=== PATIENT | female | born 1935 | race Asian ===

== ENCOUNTER 2017-01-31 07:19 | Day surgery (SDC) | payer MEDICARE, OTHER ==
--- NOTE | 2017-01-25 09:09 | HISTORY AND PHYSICAL E ---
History and Physical NAME: COLETTE TOMAS : 1935 AGE: 81Y ADMITTED: 01/31/2017 ROOM: PLAN: Upper scope/colonoscope. HISTORY AND PHYSICAL: Patient is known to us. She does have a history of colon cancer resection. I saw her in 2008 and colonoscope was negative. At this time, patient is for upper scope and colonoscope. I saw her in 2014 where she did have a colon showing no evidence of recurrence, small polyp, redundant colon. At this time patient is for colonoscopy and upper endoscopy. PHYSICAL EXAMINATION: GENERAL: Pleasant, alert, oriented, in no acute distress. VITAL SIGNS: Blood pressure 120/80, pulse 80, respirations 18, temp is 98. HEENT: Normal. ABDOMEN: Soft. NEUROLOGIC: Exam negative. MEDICATIONS: She takes Nexium, hydrochlorothiazide, and nitroglycerin. ALLERGIES: She is allergic to IODINE. CONCLUSIONS: 1. Diverticulosis. 2. Colorectal polyps. PLAN: Upper scope and colonoscope for 01/31/2017. DICTATING PHYSICIAN: MANISHA VEGA M.D. [id number] PHY#: [id number] ID: [id number] JOB#: [id number] ACCT: [id number] cc: >
--- NOTE | 2017-01-25 09:10 | HISTORY AND PHYSICAL E ---
History and Physical NAME: COLETTE TOMAS : 1935 AGE: 81Y ADMITTED: 01/31/2017 ROOM: CHIEF COMPLAINT: History of polyps. HISTORY OF PRESENT ILLNESS: I did colonoscopy in 2000 where she had tiny rectal polyps, patent anastomosis, benign looking polyp in the distal terminal ileum. Biopsy came back no neoplastic. The patient did have another colonoscopy 2004 and upper endoscopy 2004 as well shows no ulcers. The patient did have gastritis, esophagitis and duodenitis. Colonoscopy 2004 shows no polyps, no malignancy. A 2006 colonoscopy shows hyperplastic polyps. Another colonoscopy and upper endoscopy done in 2013. ALLERGIES: IODINE. PHYSICAL EXAMINATION: VITAL SIGNS: Blood pressure 120/80, pulse 80, respirations 18, temperature is 98. HEAD, EYES, EARS, NOSE AND THROAT: Normal. ABDOMEN: Soft. NEUROLOGIC EXAM: Negative. CONCLUSION: 1. Reflux. 2. History of polyps. PLAN: The patient did have colonoscopy 2014 that showed small benign adenoma polyp with no evidence of malignancy. At this time patient admitted for upper scope and colon scope. MEDICATIONS: 1. Nexium. 2. Simvastatin. 3. Vitamin D. DICTATING PHYSICIAN: MANISHA VEGA M.D. [id number] PHY#: [id number] ID: [id number] JOB#: [id number] ACCT: [id number] cc:MANISHA VEGA M.D., ROBERT M.D. >
[2017-01-31] MEDS ORDERED: ONDANSETRON HCL INJ/PF 4 MG/2 ML SDV ONE (07:28)
[2017-01-31] MEDS ORDERED: GLYCOPYRROLATE INJ 0.4 MG/2 ML VIAL ONE (07:28)
[2017-01-31] MEDS ORDERED: NALOXONE HCL INJ/PF 0.4 MG/1 ML SDV ONE (07:28)
[2017-01-31] MEDS ORDERED: LIDOCAINE 2% JELLY 30 ML TUBE ONE (07:28)
[2017-01-31] MEDS ORDERED: EPINEPHRINE INJ 1 MG/10 ML DISP.SYRIN ONE (07:29)
[2017-01-31] MEDS ORDERED: GLUCAGON,HUMAN RECOMB 1 MG INJ ONE (07:29)
[2017-01-31] MEDS ORDERED: FLUMAZENIL INJ 0.5 MG/5 ML VIAL ONE (07:29)
[2017-01-31] MEDS: FENTANYL CITRATE INJ/PF 100 MCG/2 ML AMPUL ONE ×4 (08:17→09:17)
[2017-01-31] MEDS: MIDAZOLAM 2 MG/2 ML INJ ONE ×3 (09:03→09:15)
[2017-01-31 10:33] VITALS: BP 147/85
[2017-01-31 10:33] LABS: ABSOLUTE EOSINOPHILS # (AUTO) 0.2 10^3/uL (0.0-0.6); ABSOLUTE MONOCYTES (AUTO) 0.2 10^3/uL (0.1-1.4); ABSOLUTE NEUT (AUTO) 4.9 10^3/uL (1.7-8.2); BASOPHILS % (AUTO) 0.5 % (0-2); EOSINOPHILS % (AUTO) 2.7 % (0-6); HEMATOCRIT 34.5 % (36.0-47.0); HEMOGLOBIN 11.9 g/dL (12.0-15.5); HGB HCT DIFFERENCE 1.2; LYMPHOCYTES % (AUTO) 16.2 % (13-45); MEAN CORPUSCULAR HEMOGLOBIN 31.1 pg (27.0-33.4); MEAN CORPUSCULAR HGB CONC 34.5 g/dL (32.0-36.0); MEAN CORPUSCULAR VOLUME 90 fl (80-97); MONOCYTES % (AUTO) 3.9 % (3-13); RED BLOOD COUNT 3.84 10^6/uL (3.72-5.28); RED CELL DISTRIBUTION WIDTH 13.5 % (11.5-14.0); SEGMENTED NEUTROPHILS % (AUTO) 76.7 % (42-78); WHITE BLOOD COUNT 6.4 10^3/uL (4.0-10.5)
--- NOTE | 2017-01-31 14:43 | DISCHARGE SUMMARY E ---
Discharge Summary NAME: COLETTE TOMAS : 1935 AGE: 81Y ADMITTED: 01/31/2017 DISCHARGED: 01/31/2017 HOSPITAL COURSE: An 81-year-old female who presented to us with history of polyp, right colon resection, underwent colonoscopy today showing sigmoid polyp 3 mm, biopsy obtained, patent anastomosis. Upper scope shows no ulcers, mild gastritis, mild esophagitis. DISCHARGE PLAN: Hold aspirin and nonsteroidal. Continue all medication, vitamin D, Ultram, omeprazole, insulin, Januvia, gabapentin, vitamin and Coreg. Soft diet today. Awaiting biopsy results. Baseline CEA and CBC. Consider follow-up colonoscopy in 1 to 2 years. DICTATING PHYSICIAN: MANISHA VEGA M.D. [id number] [id number] PHY#: [id number] ID: [id number] JOB#: [id number] ACCT: [id number] cc:[facility] MANISHA BOLTON M.D., ROBERT M.D. >
--- NOTE | 2017-02-01 11:01 | OPERATIVE REPORT E ---
Operative Report NAME: COLETTE TOMAS : 1935 AGE: 81Y DATE OF SURGERY: 01/31/2017 ROOM: PREOPERATIVE DIAGNOSIS: History of right colon resection secondary to polyps. At this time, patient for followup colonoscopy. POSTOPERATIVE DIAGNOSIS: Patient has a small 4 mm polyp in the sigmoid colon. Biopsy obtained. PROCEDURE: Colonoscopy into the small intestine bypassing the anastomoses. SURGEON: MANISHA VEGA M.D. DESCRIPTION: Rectal exam normal. Sigmoid shows small 3 mm polyp, biopsy obtained. Descending colon normal. Transverse colon normal. Ascending colon resected. Scope advanced into terminal ileum. Normal distal ileum. Scope withdrawn back into anastomoses. Transverse colon normal. Descending colon normal. Sigmoid shows 3 mm polyp. Rectum normal. CONCLUSION: Sigmoid polyp. Right colon resection. No evidence of malignancy. PLAN: Awaiting biopsy results. Baseline CBC, CEA. Consider followup colonoscopy after 1 to 2 years. Patient did have another colonoscopy today upper scope. PREOPERATIVE DIAGNOSIS: Reflux. POSTOPERATIVE DIAGNOSES: 1. Esophagitis, mild. 2. Gastritis, mild. PROCEDURES: 1. Esophagoscopy. 2. Gastroscopy. 3. Duodenoscopy. TISSUE REMOVED OR ALTERED: None. ANESTHESIA: Versed 2, fentanyl 50. DESCRIPTION: Baby scope passed under guided vision, no difficulties. Esophagoscopy junction at 40. Mild esophagitis. Gastroscopy is mild gastritis. Duodenum normal. CONCLUSION: 1. Mild esophagitis. 2. Mild gastritis. No evidence of ulcers. Patient tolerated procedure well. DICTATING PHYSICIAN: MANISHA VEGA M.D. [id number] Y#: [id number] ID: [id number] JOB#: [id number] ACCT: [id number] cc:[facility] MANISHA BOLTON M.D., ROBERT M.D. >
== END 2017-01-31 10:50 | disposition home or self-care (01) ==
LOC: END 07:19
PROVIDERS: ATTEND Specialist
PROC: 0DBN8ZX Excision of Sigmoid Colon, Via Natural or Artificial Opening Endoscopic, Diagnostic (ICD-10-PCS; principal; 2017-01-31 09:00)
PROC: 0DJ08ZZ Inspection of Upper Intestinal Tract, Via Natural or Artificial Opening Endoscopic (ICD-10-PCS; 2017-01-31 09:00)
DX: Z12.11 Encounter for screening for malignant neoplasm of colon (principal); D12.5 Benign neoplasm of sigmoid colon; K29.70 Gastritis, unspecified, without bleeding; K20.9 Esophagitis, unspecified; K21.9 Gastro-esophageal reflux disease without esophagitis; R97.0 Elevated carcinoembryonic antigen [CEA]; Z90.49 Acquired absence of other specified parts of digestive tract; Z79.899 Other long term (current) drug therapy
CPT/HCPCS: 43235; 45380; 36415; 82962; 82378; 85025; 88305 ×2; J2250; J3010; J1610; J2405; J0171; J2310; J3490

== ENCOUNTER 2017-07-09 11:30 | Emergency (ER) | payer MEDICARE, OTHER ==
[2017-07-09 11:40] VITALS: BP 168/84
--- NOTE | 2017-07-09 11:48 | ER Document Report ---
HPI - HPI Patient complains to provider of: fell Onset: Just prior to arrival Onset/Duration: Sudden Quality of pain: Throbbing Pain Level: 4 Context: 81 yo right handed female stumbled and used arm to break the fall from the step trying to get into SUV prior to arrival. Thinks the wrist is broken, here with 2 friends. Associated Symptoms: None Exacerbated by: Movement Relieved by: Denies Similar symptoms previously: No Recently seen / treated by doctor: No - ROS ROS below otherwise negative: Yes Systems Reviewed and Negative: Yes All other systems reviewed and negative - REPRODUCTIVE Reproductive: DENIES: : Past Medical History - General Information source: Patient - Social History Smoking Status: Never Smoker Frequency of alcohol use: None Drug Abuse: None Lives with: Friend Family History: Reviewed & Not Pertinent - Past Medical History Cardiac Medical History: Reports: Hx Hypercholesterolemia, Hx Hypertension Pulmonary Medical History: Reports: Hx Pneumonia Neurological Medical History: Endocrine Medical History: Reports: Hx Diabetes Mellitus Type 2 Renal/ Medical History: Malignancy Medical History: Reports: Hx Colorectal Cancer GI Medical History: Reports: Hx Gastroesophageal Reflux Disease - 6 years- takes meds Musculoskeltal Medical History: Reports Hx Arthritis Traumatic Medical History: Denies: Hx Fractures Past Surgical History: Reports: Hx Abdominal Surgery - Partial colectomy, Hx Bowel Surgery - colon cancer/colon resection , Hx Orthopedic Surgery - Right hip replacement done 05/10/2010 - Immunizations Hx Diphtheria, Pertussis, Tetanus Vaccination: No Hx Pneumococcal Vaccination: 05/14/12 Vertical Provider Document - CONSTITUTIONAL Agree With Documented VS: Yes Exam Limitations: No Limitations General Appearance: Mild Distress - INFECTION CONTROL TRAVEL OUTSIDE OF THE [place] IN LAST 30 DAYS: No - HEENT HEENT: Normocephalic - NECK Neck: Supple - RESPIRATORY O2 Sat by Pulse Oximetry: 94 - MUSCULOSKELETAL/EXTREMETIES Musculoskeletal/Extremeties: Tender - left distal radius. n/v intact distally, 2 + radial pulse, Edema - distal left radius - NEURO Level of Consciousness: Awake, Alert Motor/Sensory: No Motor Deficit, No Sensory Deficit Course - Vital Signs Vital signs: Temp Pulse Resp BP Pulse Ox 97.7 F 57 L 19 168/84 H 94 07/09/17 11:38 07/09/17 11:38 07/09/17 11:38 07/09/17 11:38 07/09/17 11:38 Procedures - Immobilization Left Wrist Time completed: 13:10 Pre-Proc Neuro Vasc Exam: Normal Immobilizer type: Sugar tong Performed by: PCT Post-Proc Neuro Vasc Exam: Normal Alignment checked and good: Yes Discharge - Discharge Clinical Impression: comminuted distal radius fx, non displac Condition: Good Disposition: HOME, SELF-CARE Instructions: Fractured Radius ([facility]), Oral Narcotic Medication ([facility]), Sling to be Used ([facility]), Splint Pending Casting ([facility]) Additional Instructions: call for appointment with dr. dove the orthopedic doctor this week keep the splint on elevate on pillows to er any concerns Prescriptions: Oxycodone HCl/Acetaminophen [Percocet 5-325 mg Tablet] 1 tab PO ASDIR PRN #15 tablet PRN Reason: Referrals: GIO JONES MD [ACTIVE STAFF] - Follow up tomorrow (call for appointment this week)
[2017-07-09] MEDS ORDERED: OXYCODONE-ACETAMINOPHEN 5-325 MG TABLET PO ONE ×2 (11:57→12:49)
[2017-07-09] MEDS ORDERED: ONDANSETRON 4 MG TAB.RAPDIS PO ONE (11:57)
[2017-07-09] MEDS ORDERED: DIPH/PERTUSS(ACELL)/TETANUS VAC/PF 0.5 ML SYR (>=10YO) IM ONE (11:58)
--- NOTE | 2017-07-09 12:48 | RADIOLOGY REPORT (SQ) ---
EXAM DESCRIPTION: WRIST LEFT 3 VIEWS COMPLETED DATE/TIME: 07/09/2017 12:20 pm REASON FOR STUDY: fx COMPARISON: None. NUMBER OF VIEWS: Three views. TECHNIQUE: AP, lateral, and oblique radiographic images acquired of the left wrist. LIMITATIONS: None. FINDINGS: MINERALIZATION: Normal. BONES: Comminuted displaced impacted fracture involving the distal radius which involve the articular surface. Severe degenerative changes involving the 1st carpal/metacarpal joint SOFT TISSUES: No soft tissue swelling. No foreign body. OTHER: No other significant finding. IMPRESSION: Comminuted displaced impacted fracture involving the distal radius. TECHNICAL DOCUMENTATION: JOB ID: [id number] [employer]- All Rights Reserved Reading location - IP/workstation name: [email or web address]
== END 2017-07-09 13:03 | disposition home or self-care (01) ==
LOC: ER 11:30
DX: S52.592A Other fractures of lower end of left radius, initial encounter for closed fracture (principal); W10.8XXA Fall (on) (from) other stairs and steps, initial encounter; Y93.89 Activity, other specified; I10 Essential (primary) hypertension; E11.9 Type 2 diabetes mellitus without complications; Z85.048 Personal history of other malignant neoplasm of rectum, rectosigmoid junction, and anus
CPT/HCPCS: 99283; 90471; 73110; 90715; 29125; A9270 ×2; S0119

== ENCOUNTER 2017-09-14 07:32 | Day surgery (SDC) | payer MEDICARE, OTHER ==
[2017-09-14] MEDS ORDERED: DIPHENHYDRAMINE HCL 50 MG/ML VIAL ONE (07:50)
[2017-09-14] MEDS ORDERED: NALOXONE HCL INJ/PF 0.4 MG/1 ML SDV ONE (07:50)
[2017-09-14] MEDS ORDERED: ONDANSETRON HCL INJ/PF 4 MG/2 ML SDV ONE (07:50)
[2017-09-14] MEDS ORDERED: EPINEPHRINE INJ 1 MG/10 ML DISP.SYRIN ONE (07:51)
[2017-09-14] MEDS ORDERED: FLUMAZENIL INJ 0.5 MG/5 ML VIAL ONE (07:51)
[2017-09-14] MEDS ORDERED: FENTANYL CITRATE INJ/PF 100 MCG/2 ML AMPUL ONE (07:51)
[2017-09-14] MEDS ORDERED: GLUCAGON,HUMAN RECOMB 1 MG INJ ONE (07:51)
[2017-09-14] MEDS: MIDAZOLAM 2 MG/2 ML INJ ONE ×2 (08:16→08:30)
[2017-09-14 09:54] VITALS: BP 141/81
--- NOTE | 2017-09-14 12:42 | Operative Report ---
Operative Report DATE OF SURGERY: 09/14/17 Operative Report: The risks, benefits and alternatives of the procedure including risks of bleeding, perforation requiring surgery are explained to the patient in detail and informed consent is obtained. Patient was taken back to the endoscopy suite and placed in the left, lateral decubital position. Timeout was called. Conscious sedation medications are provided. A rectal examination is done which did not reveal any masses, tears or fissures. An Olympus videoscope was inserted the patient's rectum. The scope was then carefully advanced all the way to the anastomotic site. Mild inflammation and ulceration of the small intestinal site is noted. Biopsies obtained prep is good photodocumentation is obtained. The scope was then sequentially pulled back through the distal portions of the colon. Retroflexion maneuver is performed. The risks benefits and alternatives of the procedure explained to the patient in detail and informed consent is obtained.A GIF Olympus video scope was inserted into the patient's mouth and hypopharynx, the esophagus is identified intubated and insufflated ,the scope was then advanced through the esophagus stomach and duodenum, retroflexion maneuver is done, the esophagus stomach and first and second portions of the duodenum examined PREOPERATIVE DIAGNOSIS: Personal history of polyp. Dysphagia POSTOPERATIVE DIAGNOSIS: Mild inflammation at the anastomosis status post biopsy. Schatzki's ring which is broken. Hiatal hernia. Gastritis status post biopsy rule out Helicobacter pylori OPERATION: Colonoscopy with biopsy. EGD with biopsy SURGEON: BRET COLLADO ANESTHESIA: Moderate Sedation - 3 mg of Versed, 25 mcg of fentanyl. Conscious sedation monitoring time 30 minutes. 4 mg of Zofran provided. TISSUE REMOVED OR ALTERED: As noted above. COMPLICATIONS: None. ESTIMATED BLOOD LOSS: None. INTRAOPERATIVE FINDINGS: As noted above. PROCEDURE: Patient tolerated procedure well. No immediate postprocedure comp occasions are noted. Patient discharged in good condition. Discharge date 09/14/2017. Discharge diet: Regular. Discharge activity: Regular. 2-3 week follow-up to discuss findings. Patient is instructed call the office should there be any further problems or questions. We will wait on pathology.
--- NOTE | 2017-09-19 10:29 | PDOC CONSULTATION ---
Consultation Consult Date: 09/14/17 Attending physician:: BRET COLLADO Consult reason:: dysphagia. personal history of a polyp History of Present Illness Admission Date/PCP: VINCENT MALIK MD History of Present Illness: COLETTE TOMAS is a 81 year old female Patient seen in the office. She has complaints of intermittent solid food dysphagia. No associated weight loss. Some gastroesophageal reflux disease is noted. Denies any early satiety Denies any nausea vomiting and there is no melena Patient states had previous colonoscopy with personal history of polyp Denies any blood loss Denies any rectal bleeding She is due for surveillance colonoscopy Past Medical History Cardiac Medical History: Reports: Hyperlipidema, Hypertension Denies: Atrial Fibrillation, Congestive Heart Failure, Coronary Artery Disease, Myocardial Infarction, Peripheral Vascular Disease, Pulmonary Embolism , Heart Murmur Pulmonary Medical History: Reports: Pneumonia Denies: Asthma, Bronchitis, Chronic Obstructive Pulmonary Disease (COPD), Respiratory Failure, Sleep Apnea, Tuberculosis Neurological Medical History: Denies: Seizures Endocrine Medical History: Reports: Diabetes Mellitus Type 2 Denies: Hyperthyroidism, Hypothyroidism Malignancy Medical History: Reports: Colorectal Cancer Denies: Lung Cancer GI Medical History: Reports: Gastroesophageal Reflux Disease - 6 years- takes meds Denies: Crohn's Disease, Hiatal Hernia Musculoskeltal Medical History: Reports: Arthritis Denies: Fibromyalgia Hematology: Denies: Anemia Past Surgical History Past Surgical History: Reports: Orthopedic Surgery - Right hip replacement done 05/10/2010 Denies: Amputation, Appendectomy, Section, Cholecystectomy, Colostomy, Coronary Artery Bypass Graft, Gastric Bypass Surgery, Herniorrhaphy, Hysterectomy, Mastectomy, Pacemaker, Tonsillectomy, Tubal Ligation Social History Smoking Status: Never Smoker Frequency of Alcohol Use: None Hx Recreational Drug Use: No Drugs: None Hx Prescription Drug Abuse: No Family History Family History: Reviewed & Not Pertinent Parental Family History Reviewed: Yes Children Family History Reviewed: Unknown Sibling(s) Family History Reviewed.: Unknown Medication/Allergy Home Medications: Carvedilol [Coreg] 25 mg PO BID 07/10/13 Ergocalciferol (Vitamin D2) [Vitamin D2] 50,000 unit PO ASDIR 07/10/13 Multivitamin [Daily Vitamin] 1 each PO DAILY 07/15/14 Insulin Glargine,Hum.rec.anlog [Lantus Insulin 100 Unit/mL] 25 unit SUBCUT QAM 02/29/16 Omeprazole 40 mg PO QAM 02/29/16 Sitagliptin Phosphate [Januvia 50 mg Tablet] 100 mg PO QAM 02/29/16 Tramadol HCl [Ultram 50 mg Tablet] 50 mg PO TID 02/29/16 Gabapentin 300 mg PO DAILY 01/31/17 Furosemide [Lasix 40 mg Tablet] 40 mg PO ASDIR PRN 09/14/17 Losartan/Hydrochlorothiazide [Losartan-Hctz 100-25 mg Tab] 1 each PO DAILY 09/14 Allergies/Adverse Reactions: iodine [Iodine] Adverse Reaction (Intermediate, Verified 09/14/17 07:40) Rash/itching Review of Systems Constitutional: ABSENT: fever(s), headache(s), night sweats, weakness Eyes: ABSENT: visual disturbances Ears: ABSENT: hearing changes Nose, Mouth, and Throat: ABSENT: mouth pain Cardiovascular: ABSENT: edema, orthropnea, palpitations Respiratory: ABSENT: dyspnea, hemoptysis Gastrointestinal: PRESENT: dysphagia. ABSENT: hematochezia, nausea, vomiting Genitourinary: ABSENT: dysuria, hematuria Musculoskeletal: ABSENT: deformity, joint swelling Integumentary: ABSENT: lesions, pruritus Neurological: ABSENT: syncope, tingling, tremor(s), vertigo Endocrine: ABSENT: polydipsia, polyphagia, polyuria Hematologic/Lymphatic: PRESENT: easy bruising Physical Exam Vital Signs: Temp Pulse Resp BP Pulse Ox 97.9 F 68 16 141/81 H 96 09/14/17 09:05 09/14/17 09:35 09/14/17 09:35 09/14/17 09:35 09/14/17 09:35 General appearance: PRESENT: no acute distress, well-developed, well-nourished Head exam: PRESENT: atraumatic, normocephalic Eye exam: PRESENT: EOMI, PERRLA. ABSENT: scleral icterus Mouth exam: PRESENT: moist Throat exam: ABSENT: tonsillar exudate, tonsillogmegaly Neck exam: ABSENT: meningismus, tenderness, thyromegaly Respiratory exam: PRESENT: symmetrical, unlabored. ABSENT: tachypnea, wheezes Cardiovascular exam: PRESENT: RRR, +S1, +S2 GI/Abdominal exam: PRESENT: soft. ABSENT: rebound, rigid, tenderness Extremities exam: ABSENT: joint swelling Musculoskeletal exam: PRESENT: full ROM Neurological exam: PRESENT: alert, awake, oriented to time, oriented to situation, CN II-XII grossly intact Focused psych exam: ABSENT: restlessness Skin exam: PRESENT: normal color. ABSENT: mottled, pallor, urticaria, vesicles Assessment & Plan - Diagnosis (1) Personal history of colonic polyps Plan: Will need colonoscopy. If negative this should be her last colonoscopy. Risk benefits alternatives of the procedure including risks of bleeding, perforation requiring surgery are explained to the patient in detail, informed consent was obtained and further recommendations to follow. (2) Dysphagia Plan: We will need EGD as well. Can schedule at the same setting. Further recommendations to follow. - Time Time Spent: 50 to 70 Minutes
== END 2017-09-14 09:40 | disposition home or self-care (01) ==
LOC: END 07:32
PROVIDERS: ATTEND Internal Medicine Gastroenterology
DX: Z12.11 Encounter for screening for malignant neoplasm of colon (principal); K52.9 Noninfective gastroenteritis and colitis, unspecified; K22.2 Esophageal obstruction; K29.50 Unspecified chronic gastritis without bleeding; Z86.010 Personal history of colon polyps; E87.5 Hyperkalemia; I10 Essential (primary) hypertension; E11.9 Type 2 diabetes mellitus without complications; K21.9 Gastro-esophageal reflux disease without esophagitis; M19.90 Unspecified osteoarthritis, unspecified site; Z96.641 Presence of right artificial hip joint; Z79.4 Long term (current) use of insulin; Z79.899 Other long term (current) drug therapy; Z85.038 Personal history of other malignant neoplasm of large intestine
CPT/HCPCS: 43239; 45380; 82962; 88342 ×2; 88305 ×2; J2250; J3010; J2405; J0171; J1200; J1610; J2310; J3490

== ENCOUNTER → 2018-05-08 | Outpatient (CLI) | payer MEDICARE, OTHER ==
--- NOTE | 2018-05-08 11:17 | RADIOLOGY REPORT (SQ) ---
EXAM DESCRIPTION: U/S RETROPERITON (RENAL/AORTA) COMPLETED DATE/TIME: 05/08/2018 10:16 am REASON FOR STUDY: N18.3 CHRONIC KIDNEY DISEASE, STAGE 3 (MODERATE) N18.3 CHRONIC KIDNEY DISEASE, ST AGE 1 (MODERATE) COMPARISON: MRI lumbar spine 01/18/2016 TECHNIQUE: Dynamic and static grayscale images acquired of the kidneys and bladder and recorded on P ACS. Additional selected color Doppler and spectral images recorded. LIMITATIONS: None. FINDINGS: RIGHT KIDNEY: Normal size, 10.6 cm in length. Mild cortical thinning and increased echoge nicity from chronic medical renal disease. No solid or suspicious masses. No hydronephrosis. No calci fications. LEFT KIDNEY: Normal size, 10 cm in length. Mild cortical thinning and increased echogenicity from c hronic medical renal disease. No solid or suspicious masses. No hydronephrosis. No calcifications. BLADDER: Decompressed. Not well-visualized OTHER FINDINGS: No other significant finding. IMPRESSION: Urinary bladder not visualized. Normal size kidneys. No hydronephrosis. Mild bilateral renal cortical thinning and increased echoge nicity from medical renal disease. TECHNICAL DOCUMENTATION: JOB ID: [id number] [employer]- All Rights Reserved Reading location - IP/workstation name: [email or web address]
== END ==
LOC: RAD 09:45
PROVIDERS: ATTEND Internal Medicine
DX: N18.3 Chronic kidney disease, stage 3 (moderate) (principal)
CPT/HCPCS: 76770

== ENCOUNTER 2019-01-15 08:15 | Day surgery (SDC) | payer MEDICARE, OTHER ==
[2019-01-08 09:53] LABS: HEMATOCRIT 33.3 % (36.0-47.0); HEMOGLOBIN 11.1 g/dL (12.0-15.5); MEAN CORPUSCULAR HEMOGLOBIN 30.3 pg (27.0-33.4); MEAN CORPUSCULAR HGB CONC 33.4 g/dL (32.0-36.0); MEAN CORPUSCULAR VOLUME 91 fl (80-97); PLATELET COUNT 162 10^3/uL (150-450); RED BLOOD COUNT 3.67 10^6/uL (3.72-5.28); RED CELL DISTRIBUTION WIDTH 13.5 % (11.5-14.0); WHITE BLOOD COUNT 6.1 10^3/uL (4.0-10.5)
[2019-01-08 10:19] LABS: ANION GAP 8 (5-19); BLOOD UREA NITROGEN 26 mg/dL (7-20); CALCIUM 9.4 mg/dL (8.4-10.2); CARBON DIOXIDE 33 mmol/L (22-30); CHLORIDE 100 mmol/L (98-107); GLUCOSE 128 mg/dL (75-110); POTASSIUM 4.8 mmol/L (3.6-5.0)
--- NOTE | 2019-01-08 13:02 | EKG REPORT ---
SEVERITY:- NORMAL ECG - SINUS RHYTHM : Confirmed by: Kwame Hernandez MD 08-Jan-2019 13:01:59
[~2019-01-15 08:15] MED LIST: CEFAZOLIN 1 GM/D5W RTU 1 GM/50 ML RTUPB IV ONE
[2019-01-15 09:04] LABS: POTASSIUM 4.3 mmol/L (3.6-5.0)
[2019-01-15] MEDS ORDERED: MICROFIBRILLAR COLLAGEN 1 GM PACK ONE (10:37)
[2019-01-15] MEDS ORDERED: LIDOCAINE 1%/EPINEPHRINE INJ 20 ML VIAL ONE (10:37)
[2019-01-15] MEDS ORDERED: FENTANYL CITRATE INJ/PF 250 MCG/5 ML AMPULE ONE (10:39)
[2019-01-15] MEDS ORDERED: PROPOFOL INJ 200 MG/20 ML VIAL IV ONE (10:39)
[2019-01-15] MEDS ORDERED: FENTANYL CITRATE INJ/PF 100 MCG/2 ML AMPUL IV PRN ×3 (11:13)
[2019-01-15] MEDS ORDERED: PROMETHAZINE HCL INJ 25 MG/1 ML VIAL IV PRN (11:13)
[2019-01-15] MEDS ORDERED: OXYCODONE-ACETAMINOPHEN 5-325 MG TABLET PO PRN ×3 (11:13→12:16)
[2019-01-15] MEDS ORDERED: MEPERIDINE HCL/PF INJ 25 MG/1 ML DISP.SYRIN IV PRN (11:13)
[2019-01-15] MEDS ORDERED: MORPHINE SULFATE 10 MG/ML INJ IV PRN (11:13)
[2019-01-15] MEDS ORDERED: ONDANSETRON HCL INJ/PF 4 MG/2 ML SDV IV PRN (11:13)
[2019-01-15] MEDS ORDERED: DIPHENHYDRAMINE HCL 50 MG/ML VIAL IV PRN (11:13)
--- NOTE | 2019-01-15 12:13 | Operative Report ---
Operative Report DATE OF SURGERY: 01/15/19 PREOPERATIVE DIAGNOSIS: Invasive ductal carcinoma right breast POSTOPERATIVE DIAGNOSIS: Same OPERATION: Right simple mastectomy with drainage of chest wall SURGEON: KAMRYN CORDERO 1ST FUEL DISTRIBUTION SYSTEM OPERATOR: DIANA LUCERO ANESTHESIA: GA TISSUE REMOVED OR ALTERED: Right breast COMPLICATIONS: None ESTIMATED BLOOD LOSS: 10 cc INTRAOPERATIVE FINDINGS: See below PROCEDURE: Patient was seen in preop holding area the right breast was marked. She was then taken to the main operating general anesthesia was induced via LMA. The right arm was abducted, the right breast and axilla and chest wall were prepped and draped in sterile fashion with Betadine Surgical plan and surgical timeout were conducted. Markings were made on the right breast for planned simple mastectomy. An ellipse was made with a #10 blade, and superior skin flaps were raised all the way to the subclavicular. Inferiorly the flap was taken down to the chest wall at the level of the serratus anterior muscle. The right breast was taken off the chest wall uneventfully with electrocautery including the pectoralis major fascia. The tail of Tom was taken with the specimen as the specimen was elevated off of the lateral aspect of the pectoralis major muscle. A few lymph nodes were included in the specimen. The specimen was marked with a short suture in the superior position and a long suture lateral position. Specimen was taken by Dr. Cordero to pathology where it was inked and sliced vertically by Dr. Gaviria. The tumor was felt to be in the upper outer aspect of the mastectomy specimen with grossly clear margins. The operative wound was inspected for bleeding there was none. A large Dave drain was placed to the inferior skin flap, trimmed the appropriate length,. The skin with 2-0 Prolene suture. Mastectomy incision was closed with a running 2-0 Vicryl suture, then skin approximated with skin glue. Patient tolerated the procedure well, extubated, and taken recovery in stable condition.
--- NOTE | 2019-01-15 12:15 | Discharge Summary ---
Discharge Summary (SDC) - Discharge Final Diagnosis: right breast cancer Date of Surgery: 01/15/19 Discharge Date: 01/15/19 Condition: Good Treatment or Instructions: [facility] [address] [place] [id number] Care Instructions Following Your Mastectomy Activities: Resume normal activities when you feel comfortable. It is best to remain as active as possible to speed your recovery. It is common to experience some fatigue after surgery and you may find that short naps are helpful. Avoid strenuous activity such as weight lifting, tennis, etc at your surgical site for two weeks. Perform gentle arm exercises daily and do not favor your operative arm to due increased risk of mobility issues postoperatively. No driving for 7 days after surgery. Do not drive if you are taking pain medication other than Tylenol or Ibuprofen. No swimming, tub baths or soaking in a hot tub for 4 weeks. There are no dietary restrictions. Do not smoke as this impairs wound healing. Surgical Site care: Remove your dressing 48 hours after surgery. Leave the steri-strips underneath in place. You may shower after removing the dressing to include washing the wound with soap and water using your hands. Do not scrub the incision. Pat the area dry with a towel. You do not need to recover the wound although some patients find that they feel more comfortable using a light dressing for a few days to absorb any minimal drainage which may occur. Many patients also find that keeping a dressing around the drain exit site is helpful to absorb any drainage which may leak around the tubing. If you use a dressing in this manner change it at least every day. Do not use heating pad or apply an ice pack to the operative site. You may apply deodorant if you are careful to avoid getting it on the wound itself. Empty the bulbs attached to the drain every 12 hours and measure the fluid output separately from each drain. Please also strip each drain each time you empty it to prevent clogging. Keep a record of the output and bring this record with you each time you come to the office for postoperative care. A drain is ready to be removed when its output is 30 mL per 24 hours per drain for 2 consecutive days. Please call the office to inform our staff that you need to come in for drain removal. Medications: Take Toradol 10mg one pill by mouth every six hours as needed for pain. Again, you cannot drive while taking narcotic pain medication. Resume all of your normal prescription medications after your surgery unless instructed otherwise. You may experience constipation after surgery while taking pain medications. If using a narcotic on a regular basis, take a stool softener such as Colace twice a day. It is helpful to stay hydrated by drinking lots of fluids. Walking is also helpful and is good exercise after surgery. If you need extra help, use Milk of Magnesia according to the directions on the package. Follow-up: Call our office at to make a follow-up appointment in 10-14 days. Your doctor will call to discuss the pathology report with you as soon as it is available. Concerns: If you notice significant leakage around the drains, this is not normal. The drains may be clogged. Please call our office to come in immediately for the drains to be checked. Some bruising may occur and will go away over time. If you have a fever of 101.5 or greater, chills, redness at the incision site, excessive drainage from your wound or severe pain not relieved by pain medication, call your doctor. A physician is available 24 hours a day 7 days a week in addition to regular office hours. If problems arise after normal office hours please call the hospital at . Please call if you have any questions or concerns. Prescriptions: Ketorolac Tromethamine [Toradol 10 mg Tablet] 10 mg PO Q6HP PRN #20 tablet PRN Reason: Referrals: VINCENT MALIK MD [Primary Care Provider] - Discharge Diet: As Tolerated Discharge Activity: Balance Activity w/Rest, No Lifting/Push/Pulling, Walk Frequently Report the Following to Your Physician Immediately: Increase in Pain, Fever over 101 Degrees, Unusual Bleeding, Redness, Swelling, Warmth, Drainage-Foul Smelling
[2019-01-15] MEDS ORDERED: ONDANSETRON HCL INJ/PF 4 MG/2 ML SDV ONE ×2 (12:44→14:05)
[2019-01-15] MEDS ORDERED: PROMETHAZINE HCL INJ 25 MG/1 ML VIAL ONE (13:06)
[2019-01-15] MEDS ORDERED: DEXAMETHASONE SOD PHOSPHATE INJ 4 MG/1 ML VIAL ONE (14:05)
[2019-01-15] MEDS ORDERED: LIDOCAINE 2% INJ-PF (20 MG/ML) 2 ML AMPUL ONE (14:05)
[2019-01-15] MEDS ORDERED: KETOROLAC TROMETHAMINE 60 MG/2 ML SDV ONE (14:05)
[2019-01-15 15:40] VITALS: BP 114/59
== END 2019-01-15 16:02 | disposition home or self-care (01) ==
LOC: OROUT 08:15
PROVIDERS: ATTEND Surgery
DX: C50.811 Malignant neoplasm of overlapping sites of right female breast (principal); Z17.0 Estrogen receptor positive status [ER+]; E11.9 Type 2 diabetes mellitus without complications; I25.10 Atherosclerotic heart disease of native coronary artery without angina pectoris; I11.9 Hypertensive heart disease without heart failure; I43 Cardiomyopathy in diseases classified elsewhere; E78.5 Hyperlipidemia, unspecified; Z85.038 Personal history of other malignant neoplasm of large intestine; Z87.891 Personal history of nicotine dependence; Z79.899 Other long term (current) drug therapy; Z79.84 Long term (current) use of oral hypoglycemic drugs; Z79.4 Long term (current) use of insulin
CPT/HCPCS: 19303; 93005; 36415 ×2; 82947; 84132; 85027; 80048; 88342 ×2; 88341 ×2; 88309 ×2; 93010; 00400; J0690; J1100; J1885; J3010; J3490 ×2; J2550; J2405; J2704; 400

== ENCOUNTER 2019-05-02 11:05 | Inpatient (IN) | payer MEDICARE, OTHER ==
[2019-05-02 12:49] LABS: ABSOLUTE BASOPHILS # (AUTO) 0.1 10^3/uL (0.0-0.2); ABSOLUTE EOSINOPHILS # (AUTO) 0.2 10^3/uL (0.0-0.6); ABSOLUTE MONOCYTES (AUTO) 0.5 10^3/uL (0.1-1.4); BASOPHILS % (AUTO) 0.7 % (0-2); EOSINOPHILS % (AUTO) 3.1 % (0-6); HEMATOCRIT 32.8 % (36.0-47.0); HEMOGLOBIN 10.9 g/dL (12.0-15.5); LYMPHOCYTES % (AUTO) 12.5 % (13-45); MEAN CORPUSCULAR HEMOGLOBIN 28.5 pg (27.0-33.4); MEAN CORPUSCULAR HGB CONC 33.3 g/dL (32.0-36.0); MEAN CORPUSCULAR VOLUME 86 fl (80-97); PLATELET COUNT 140 10^3/uL (150-450); RED BLOOD COUNT 3.82 10^6/uL (3.72-5.28); RED CELL DISTRIBUTION WIDTH 15.9 % (11.5-14.0); SEGMENTED NEUTROPHILS % (AUTO) 77.7 % (42-78); TOTAL CELLS COUNTED % (AUTO) 100 %; WHITE BLOOD COUNT 7.7 10^3/uL (4.0-10.5)
[2019-05-02 12:59] LABS: APPEARANCE,URINE SLIGHTLY-CLOUDY; BILIRUBIN,URINE NEGATIVE (NEGATIVE); COLOR,URINE YELLOW; GLUCOSE, URINE NEGATIVE (NEGATIVE); KETONES,URINE NEGATIVE (NEGATIVE); LEUKOCYTE ESTERASE,URINE TRACE (NEGATIVE); NITRITE,URINE NEGATIVE (NEGATIVE); PROTEIN,URINE NEGATIVE (NEGATIVE); UROBILINOGEN,URINE NEGATIVE mg/dL (<2.0)
[2019-05-02 13:09] LABS: INTERNATIONAL RATION (INR) 1.15; PROTHROMBIN TIME 14.8 SEC (11.4-15.4)
[2019-05-02 13:13] LABS: ALBUMIN 3.5 g/dL (3.5-5.0); ALKALINE PHOSPHATASE 75 U/L (38-126); ANION GAP 13 (5-19); ASPARTATE AMINO TRANSFERASE 32 U/L (14-36); BILIRUBIN,DIRECT 0.5 mg/dL (0.0-0.4); BILIRUBIN,TOTAL 0.8 mg/dL (0.2-1.3); BLOOD UREA NITROGEN 80 mg/dL (7-20); CALCIUM 8.4 mg/dL (8.4-10.2); CARBON DIOXIDE 30 mmol/L (22-30); CHLORIDE 96 mmol/L (98-107); CREATINE KINASE 35 U/L (30-135); GLUCOSE 104 mg/dL (75-110); TOTAL PROTEIN 7.5 g/dL (6.3-8.2)
[2019-05-02 13:15] LABS: VENOUS BLOOD BASE EXCESS 3.5 mmol/L; VENOUS BLOOD HCO3 29.1 mmol/L (20-32); VENOUS BLOOD PCO2 48.6 mmHg (35-63); VENOUS BLOOD PH 7.4 (7.30-7.42)
[2019-05-02 13:25] LABS: CREATINE KINASE MB 0.81 ng/mL (<4.55)
[2019-05-02 13:26] LABS: TROPONIN I < 0.012 ng/mL
--- NOTE | 2019-05-02 13:29 | RADIOLOGY REPORT (SQ) ---
EXAM DESCRIPTION: CT HEAD WITHOUT COMPLETED DATE/TIME: 05/02/2019 1:18 pm REASON FOR STUDY: AMS, fall COMPARISON: None. TECHNIQUE: Axial images acquired through the brain without intravenous contrast. Images reviewed wi th bone, brain and subdural windows. Additional sagittal and coronal reconstructions were generated. Images stored on PACS. All CT scanners at this facility use dose modulation, iterative reconstruction, and/or weight based d osing when appropriate to reduce radiation dose to as low as reasonably achievable (ALARA). [facility]: Dose Right [facility]: CareDose [facility]: Dose Right [facility]: Teradose 4D [facility]: Smart Yostro RADIATION DOSE: CT Rad equipment meets quality standard of care and radiation dose reduction techniq ues were employed. CTDIvol: 53.2 mGy. DLP: 1044 mGy-cm. mGy. LIMITATIONS: None. FINDINGS: VENTRICLES: Normal size and contour. CEREBRUM: No masses. No hemorrhage. No midline shift. No evidence for acute infarction. Few scatte red areas of low density in the white matter most likely chronic small vessel ischemic changes. CEREBELLUM: No masses. No hemorrhage. No alteration of density. No evidence for acute infarction. EXTRAAXIAL SPACES: No fluid collections. No masses. ORBITS AND GLOBE: No intra- or extraconal masses. Normal contour of globe without masses. CALVARIUM: No fracture. Hyperostosis frontalis. PARANASAL SINUSES: No fluid or mucosal thickening. SOFT TISSUES: No mass or hematoma. OTHER: No other significant finding. IMPRESSION: No acute intracranial pathology. Small vessel white matter disease. EVIDENCE OF ACUTE STROKE: NO. COMMENT: Quality ID # [id number]: Final reports with documentation of one or more dose reduction techniques (e.g., Automated exposure control, adjustment of the mA and/or kV according to patient size, use of iterative reconstruction technique) TECHNICAL DOCUMENTATION: JOB ID: [id number] [employer]- All Rights Reserved Reading location - IP/workstation name: [email or web address]
--- NOTE | 2019-05-02 13:38 | RADIOLOGY REPORT (SQ) ---
EXAM DESCRIPTION: CHEST SINGLE VIEW COMPLETED DATE/TIME: 05/02/2019 1:20 pm REASON FOR STUDY: syncope COMPARISON: PA and lateral views of the chest from 01/27/2019 EXAM PARAMETERS: NUMBER OF VIEWS: One view. TECHNIQUE: An AP view of the chest was obtained. RADIATION DOSE: NA LIMITATIONS: None. FINDINGS: LUNGS AND PLEURA: Bibasilar predominant interstitial opacities. The costophrenic sulci ar e blunted. There is no consolidation or pneumothorax. MEDIASTINUM AND HILAR STRUCTURES: No mediastinal or hilar contour abnormality. HEART AND VASCULAR STRUCTURES: The cardiac silhouette and pulmonary vasculature are within normal avilez its. BONES: Osteoarthrosis of the glenohumeral joints with intra-articular loose bodies. HARDWARE: None in the chest. OTHER: No other finding. IMPRESSION: Basilar predominant interstitial opacities. Correlate clinically for interstitial lung disease and pulmonary edema. TECHNICAL DOCUMENTATION: JOB ID: [id number] [employer]- All Rights Reserved Reading location - IP/workstation name: [email or web address]
[2019-05-02] MEDS ORDERED: NORMAL SALINE 1000 ML 1,000 ML IV ONE (13:39)
--- NOTE | 2019-05-02 13:41 | ER Document Report ---
ED General - General Chief Complaint: Fall Stated Complaint: SYNCOPE Time Seen by Provider: 05/02/19 12:25 Notes: Patient is a very pleasant 83-year-old female who comes in after a fall today. States that she was lightheaded. Initial blood pressure for EMS 90s over 50s. Fluids have been started prior to arrival. Patient has had decreased p.o. intake. She is on chemotherapy for breast cancer and has had some nausea recently. She has no complaints at this time. No chest pain, trouble breathing, dysuria, fever, abdominal pain, vomiting or diarrhea. TRAVEL OUTSIDE OF THE [place] IN LAST 30 DAYS: No - HPI Onset: This morning Onset/Duration: Gradual Quality of pain: No pain Severity: None Pain Level: Denies - Related Data Allergies/Adverse Reactions: iodine [Iodine] Adverse Reaction (Intermediate, Verified 05/02/19 11:46) Rash/itching Home Medications: Gabapentin. Tramadol-acetaminophen. Januvia. esomeprazole. Carvedilol. Omeprazole. Viamin D2. Reina aspirin. Losartan-HCTZ. Amlodipine. Furosemide. Doxepin Past Medical History - General Information source: Patient - Social History Smoking Status: Unknown if Ever Smoked Family History: Reviewed & Not Pertinent Patient has suicidal ideation: No Patient has homicidal ideation: No - Past Medical History Cardiac Medical History: Reports: Hx Hypercholesterolemia, Hx Hypertension Denies: Hx Atrial Fibrillation, Hx Congestive Heart Failure, Hx Coronary Artery Disease, Hx Heart Attack, Hx Peripheral Vascular Disease, Hx Pulmonary Embolism, Hx Heart Murmur Pulmonary Medical History: Reports: Hx Pneumonia Denies: Hx Asthma, Hx Bronchitis, Hx COPD, Hx Respiratory Failure, Hx Sleep Apnea, Hx Tuberculosis Neurological Medical History: Denies: Hx Cerebrovascular Accident, Hx Seizures Endocrine Medical History: Reports: Hx Diabetes Mellitus Type 2. Denies: Hx Graves' Disease, Hx Hyperthyroidism, Hx Hypothyroidism Renal/ Medical History: Denies: Hx Peritoneal Dialysis Malignancy Medical History: Reports: Hx Colorectal Cancer. Denies: Hx Lung Cancer GI Medical History: Reports: Hx Gastroesophageal Reflux Disease - 6 years- takes meds. Denies: Hx Crohn's Disease, Hx Hiatal Hernia, Hx Irritable Bowel, Hx Liver Failure, Hx Pancreatitis, Hx Ulcer Musculoskeletal Medical History: Reports Hx Arthritis, Denies Hx Fibromyalgia, Denies Hx Muscular Dystrophy, Denies Hx Systemic Lupus Erythematosus Traumatic Medical History: Denies: Hx Fractures Past Surgical History: Reports: Hx Abdominal Surgery - Partial colectomy, Hx Bowel Surgery - colon cancer/colon resection , Hx Breast Surgery - Jan 2019, Hx Orthopedic Surgery - Right hip replacement done 05/10/2010. Denies: Hx Appendectomy, Hx Section, Hx Cholecystectomy, Hx Colostomy, Hx Coronary Artery Bypass Graft, Hx Gastric Bypass Surgery, Hx Herniorrhaphy, Hx Hysterectomy, Hx Mastectomy, Hx Pacemaker, Hx Tonsillectomy, Hx Tubal Ligation - Immunizations Hx Diphtheria, Pertussis, Tetanus Vaccination: No Hx Pneumococcal Vaccination: 05/14/12 Review of Systems - Review of Systems Constitutional: Weakness -: Yes All other systems reviewed and negative Physical Exam - Vital signs Vitals: Temp Pulse Resp BP Pulse Ox 97.9 F 71 16 94/54 L 96 05/02/19 11:23 05/02/19 11:23 05/02/19 11:23 05/02/19 11:23 05/02/19 11:23 Interpretation: Hypotensive - General General appearance: Alert In distress: Mild - HEENT Head: Normocephalic, Atraumatic Eyes: Normal Pupils: PERRL - Respiratory Respiratory status: No respiratory distress Chest status: Nontender Breath sounds: Normal Chest palpation: Normal - Cardiovascular Rhythm: Regular Heart sounds: Normal auscultation Murmur: No - Abdominal Inspection: Normal Distension: No distension Bowel sounds: Normal Tenderness: Nontender Organomegaly: No organomegaly - Back Back: Normal, Nontender - Extremities General upper extremity: Normal inspection, Nontender, Normal color, Normal ROM, Normal temperature General lower extremity: Normal inspection, Nontender, Normal color, Normal ROM, Normal temperature, Normal weight bearing. No: Deneen's sign - Neurological Neuro grossly intact: Yes Cognition: Normal Orientation: AAOx4 Bayard Coma Scale Eye Opening: Spontaneous Luca Coma Scale Verbal: Oriented Bayard Coma Scale Motor: Obeys Commands Bayard Coma Scale Total: 15 Speech: Normal Motor strength normal: LUE, RUE, LLE, RLE Sensory: Normal - Psychological Associated symptoms: Normal affect, Normal mood - Skin Skin Temperature: Warm Skin Moisture: Dry Skin Color: Pale Course - Re-evaluation Re-evalutation: 05/02/19 Patient is a very pleasant 83-year-old female with no complaints at this time. States that she has been feeling weak but thought it was just because of her older age. Patient is responding well to fluids. She is found to have an acute kidney injury with a BUN of 80 and a creatinine greater than 4. Potassium is stable. Patient is making urine. Discussed with her primary care doctor, Dr. Sanabria, who will admit the patient to the [facility]. Call has also been placed to Dr. Pacheco, as the patient sees Dr. Kingston. Patient has also been discussed with Dr. Mims who will see the patient in consult. Patient is agreeable to admission. She and family have been updated. Agree with this plan. Stable at the time of admission. Of note, no acute findings on imaging - Vital Signs Vital signs: Temp Pulse Resp BP Pulse Ox 97.9 F 60 15 90/49 L 93 05/02/19 11:23 05/02/19 13:32 05/02/19 14:01 05/02/19 14:01 05/02/19 14:01 - Laboratory Result Diagrams: 05/02/19 12:35 05/02/19 12:35 Laboratory results interpreted by me: 05/02/19 05/02/19 05/02/19 12:35 12:35 12:35 Hgb 10.9 L Hct 32.8 L RDW 15.9 H Plt Count 140 L Lymph % (Auto) 12.5 L Chloride 96 L BUN 80 H Creatinine 4.30 H Est GFR ( Amer) 12 L Est GFR (MDRD) Non-Af 10 L Direct Bilirubin 0.5 H Ur Leukocyte Esterase TRACE H Leukocyte Esterase Rfl TRACE H - Diagnostic Test Radiology reviewed: Reports reviewed - EKG Interpretation by Me EKG shows normal: Sinus rhythm Rate: Normal Rhythm: NSR Discharge - Discharge Clinical Impression: ARF (acute renal failure) Qualifiers: Acute renal failure type: unspecified Qualified Code(s): N17.9 - Acute kidney failure, unspecified Fall Qualifiers: Encounter type: initial encounter Qualified Code(s): W19.XXXA - Unspecified fall, initial encounter Condition: Stable Disposition: ADMITTED INPATIENT Admitting Provider: Daniele Unit Admitted: Medical Floor
--- NOTE | 2019-05-02 15:58 | EKG REPORT ---
SEVERITY:- ABNORMAL ECG - SINUS RHYTHM LEFT BUNDLE BRANCH BLOCK : Confirmed by: Carmelo Collins 02-May-2019 15:58:17
[2019-05-02] MEDS: OXYCODONE-ACETAMINOPHEN 5-325 MG TABLET PO PRN (19:18)
--- NOTE | 2019-05-02 19:28 | PDOC CONSULTATION ---
Consultation Consult Date: 05/02/19 Provider Consulted: KVNG KOWALSKI Consult reason:: Hematology/Oncology consultation was requested for patient on anti-hormonal therapy for history of breast cancer and was admitted for acute renal failure. History of Present Illness Admission Date/PCP: 05/02/19 14:32 VINCENT MALIK MD History of Present Illness: COLETTE TOMAS is a 83 year old female who was diagnosed with Invasive Ductal Carcinoma of the right breast 01/15/2019. She underwent Mastectomy for a stage I cancer. No radiation or chemo were needed, but she did start oral Aromatase inhibitor in Feb. She was also found to have osteoporosis and was given Prolia 60 mg SC on 03/05/2019. Patient states that she believes this injection caused her to stop wanting to eat. She states that over the past 2 weeks, she has had increased fatigue, no appetite, and only wanted to sleep. She has not been drinking, so very little urine output. She states that yesterday, her knees just gave out and she could no longer walk. She was brought to the ED and found to have acute renal failure with Cr >4. Her baseline Cr 03/19/2019 was 2.17. Past Medical History Cardiac Medical History: Reports: Hyperlipidema, Hypertension Denies: Atrial Fibrillation, Congestive Heart Failure, Coronary Artery Disease, Myocardial Infarction, Peripheral Vascular Disease, Pulmonary Embolism, Heart Murmur Pulmonary Medical History: Reports: Pneumonia Denies: Asthma, Bronchitis, Chronic Obstructive Pulmonary Disease (COPD), Respiratory Failure, Sleep Apnea, Tuberculosis Neurological Medical History: Denies: Seizures Endocrine Medical History: Reports: Diabetes Mellitus Type 2 Denies: Hyperthyroidism, Hypothyroidism Malignancy Medical History: Reports: Breast Cancer, Colorectal Cancer Denies: Lung Cancer GI Medical History: Reports: Gastroesophageal Reflux Disease - 6 years- takes meds Denies: Crohn's Disease, Hiatal Hernia Musculoskeltal Medical History: Reports: Arthritis, Other - osteoporosis Denies: Fibromyalgia Hematology: Denies: Anemia Past Surgical History Past Surgical History: Reports: Mastectomy, Orthopedic Surgery - Right hip replacement done 05/10/2010, Other - hemicolectomy for colon cancer 1997 Denies: Amputation, Appendectomy, Section, Cholecystectomy, Colostomy, Coronary Artery Bypass Graft, Gastric Bypass Surgery, Herniorrhaphy, Hysterectomy, Pacemaker, Tonsillectomy, Tubal Ligation Social History 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 Father age 45 HTN and blood clot Children Family History Reviewed: Yes Sibling(s) Family History Reviewed.: Yes Medication/Allergy Home Medications: Amlodipine Besylate [Norvasc 10 mg Tablet] 10 mg PO DAILY 05/02/19 Carvedilol [Coreg 25 mg Tablet] 25 mg PO Q12 05/02/19 Doxepin HCl [Sinequan 25 Mg Capsule] 25 mg PO QHS 05/02/19 Ergocalciferol (Vitamin D2) [Drisdol 50,000 Unit (1.25MG) Capsule] 50,000 unit PO SA@1000 05/02/19 Esomeprazole Magnesium [Nexium] 40 mg PO Q6AM 05/02/19 Furosemide [Lasix 40 mg Tablet] 40 mg PO DAILYP PRN 05/02/19 Gabapentin [Neurontin 300 mg Capsule] 300 mg PO Q8 05/02/19 Insulin Glargine,Hum.rec.anlog [Lantus Insulin 100 Unit/1 ml 10 ml] 25 unit SUBCUT DAILY 05/02/19 Losartan/Hydrochlorothiazide [Losartan-Hctz 100-25 mg Tab] 1 each PO DAILY 05/02/19 Omeprazole 40 mg PO Q6AM 05/02/19 Sitagliptin Phosphate [Januvia] 100 mg PO DAILY 05/02/19 Tramadol HCl/Acetaminophen [Tramadol-Acetaminophn 37.5-325] 1 each PO Q6HP PRN 05/02/19 Allergies/Adverse Reactions: iodine [Iodine] Adverse Reaction (Intermediate, Verified 05/02/19 11:46) Rash/itching Review of Systems Constitutional: ABSENT: fever(s), headache(s) Eyes: ABSENT: visual disturbances Ears: ABSENT: hearing changes Nose, Mouth, and Throat: ABSENT: sore throat Cardiovascular: ABSENT: chest pain Respiratory: ABSENT: dyspnea Gastrointestinal: ABSENT: abdominal pain, nausea Genitourinary: ABSENT: dysuria Musculoskeletal: PRESENT: muscle weakness Integumentary: ABSENT: rash Neurological: PRESENT: frequent falls, weakness Hematologic/Lymphatic: ABSENT: easy bleeding Physical Exam Vital Signs: Temp Pulse Resp BP Pulse Ox 98.6 F 60 21 H 88/49 L 92 05/02/19 18:01 05/02/19 13:32 05/02/19 18:00 05/02/19 16:01 05/02/19 15:01 Intake & Output 05/01/19 05/02/19 05/03/19 06:59 06:59 06:59 Intake Total 1000 Balance 1000 Weight 61.8 kg General appearance: PRESENT: no acute distress, well-developed, well-nourished Exam: 83 year old female. Head exam: PRESENT: atraumatic, normocephalic Eye exam: PRESENT: EOMI Mouth exam: PRESENT: tongue midline Neck exam: ABSENT: lymphadenopathy, tenderness Respiratory exam: PRESENT: clear to auscultation theresa, unlabored Cardiovascular exam: PRESENT: RRR GI/Abdominal exam: PRESENT: normal bowel sounds, soft. ABSENT: tenderness Extremities exam: ABSENT: pedal edema Musculoskeletal exam: PRESENT: normal inspection Neurological exam: PRESENT: alert, awake Psychiatric exam: PRESENT: appropriate affect Skin exam: PRESENT: normal color Results Laboratory Results: 05/02/19 12:35 05/02/19 12:35 05/02/19 05/02/19 05/02/19 12:35 12:35 12:35 WBC 7.7 RBC 3.82 Hgb 10.9 L Hct 32.8 L MCV 86 MCH 28.5 MCHC 33.3 RDW 15.9 H Plt Count 140 L Seg Neutrophils % 77.7 VBG pH VBG pCO2 VBG HCO3 VBG Base Excess Sodium 138.7 Potassium 4.0 Chloride 96 L Carbon Dioxide 30 Anion Gap 13 BUN 80 H Creatinine 4.30 H Est GFR ( Amer) 12 L Glucose 104 Calcium 8.4 Total Bilirubin 0.8 AST 32 Alkaline Phosphatase 75 Total Protein 7.5 Albumin 3.5 Urine Color YELLOW Urine Appearance SLIGHTLY-CLOUDY Urine pH 5.0 Ur Specific [place] 1.010 Urine Protein NEGATIVE Urine Glucose (UA) NEGATIVE Urine Ketones NEGATIVE Urine Blood NEGATIVE Urine Nitrite NEGATIVE Ur Leukocyte Esterase TRACE H Urine WBC (Auto) 3 05/02/19 12:52 WBC RBC Hgb Hct MCV MCH MCHC RDW Plt Count Seg Neutrophils % VBG pH 7.40 VBG pCO2 48.6 VBG HCO3 29.1 VBG Base Excess 3.5 Sodium Potassium Chloride Carbon Dioxide Anion Gap BUN Creatinine Est GFR ( Amer) Glucose Calcium Total Bilirubin AST Alkaline Phosphatase Total Protein Albumin Urine Color Urine Appearance Urine pH Ur Specific [place] Urine Protein Urine Glucose (UA) Urine Ketones Urine Blood Urine Nitrite Ur Leukocyte Esterase Urine WBC (Auto) 05/02/19 05/02/19 12:35 12:35 Creatine Kinase 35 CK-MB (CK-2) 0.81 Troponin I < 0.012 Impressions: Chest X-Ray 05/02/19 12:24 IMPRESSION: Basilar predominant interstitial opacities. Correlate clinically for interstitial lung disease and pulmonary edema. Head CT 05/02/19 12:24 IMPRESSION: No acute intracranial pathology. Small vessel white matter disease. EVIDENCE OF ACUTE STROKE: NO. Assessment & Plan - Diagnosis (1) Breast cancer Qualifiers: Breast location: unspecified site of breast Estrogen receptor status: positive Patient sex: female Laterality: right Qualified Code(s): C50.911 - Malignant neoplasm of unspecified site of right female breast; Z17.0 - Estrogen receptor positive status [ER+] Is this a current diagnosis for this admission?: Yes Plan: I see no contraindication to continuing her aromatase inhibitor, dose adjusted for her renal function, as indicated. (2) Osteoporosis Qualifiers: Osteoporosis type: age-related Presence of current pathological fracture: without current pathological fracture Qualified Code(s): M81.0 - Age-related osteoporosis without current pathological fracture Is this a current diagnosis for this admission?: Yes Plan: Although I do not believe the Prolia caused her current situation, she requests that she be given no further. I am happy to discuss alternatives with her at her next outpatient visit. Nothing is due until after August 2019. (3) ARF (acute renal failure) Qualifiers: Acute renal failure type: unspecified Qualified Code(s): N17.9 - Acute kidney failure, unspecified Is this a current diagnosis for this admission?: Yes Plan: As per Primary Care Team.
[2019-05-02] MEDS ORDERED: DEXTROSE 50%-WATER 25 GM/50 ML DISP.SYRIN IV PRN ×2 (20:10)
[2019-05-02] MEDS ORDERED: GLUCAGON,HUMAN RECOMB 1 MG INJ IM PRN (20:10)
[2019-05-02] MEDS ORDERED: DEXTROSE 40% GEL 15 GM TUBE PO PRN ×2 (20:10)
--- NOTE | 2019-05-02 21:22 | RADIOLOGY REPORT (SQ) ---
US RETROPERITONEUM LIMITED EXAM DATE: 05/02/2019 12:[address] COMMISSIONER HISTORY: Acute kidney injury. COMPARISON: None. TECHNIQUE: Grayscale and color Doppler ultrasound images of the kidneys were obtained. FINDINGS: The right kidney measures 10.5 cm in length. The cortex has increased echogenicity. There is no right-sided kidney stone, mass or hydronephrosis. The left kidney measures 10.0 cm in length. The cortex has increased echogenicity. There is no left-sided kidney stone, mass or hydronephrosis. The urinary bladder is unremarkable. IMPRESSION: 1. Echogenic kidneys suggestive of medical renal disease. 2. No hydronephrosis or renal stones.
[2019-05-02] MEDS: NORMAL SALINE 1000 ML 1,000 ML IV PRN (21:29)
[2019-05-02 21:34] LABS: INTERNATIONAL RATION (INR) 1.19; PROTHROMBIN TIME 15.2 SEC (11.4-15.4)
[2019-05-02 21:35] LABS: PARTIAL THROMBOPLASTIN TIME 42.5 SEC (23.5-35.8)
[2019-05-02 21:51] LABS: AMYLASE 45 U/L (30-110); ANION GAP 12 (5-19); BLOOD UREA NITROGEN 72 mg/dL (7-20); CALCIUM 8.1 mg/dL (8.4-10.2); CARBON DIOXIDE 28 mmol/L (22-30); CHLORIDE 98 mmol/L (98-107); GLUCOSE 84 mg/dL (75-110); POTASSIUM 3.5 mmol/L (3.6-5.0)
[2019-05-02 22:03] LABS: CREATINE KINASE MB 0.51 ng/mL (<4.55)
[2019-05-02 22:08] LABS: TROPONIN I < 0.012 ng/mL
--- NOTE | 2019-05-02 22:08 | PDOC H&P ---
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 In the emergency room she was found to have serum creatinine of 4 consistent with acute kidney injury, at baseline serum creatinine is about 1.8. Past Medical History Cardiac Medical History: Reports: Hyperlipidema, Hypertension Pulmonary Medical History: Reports: Pneumonia, Other - Pulmonary fibrosis Endocrine Medical History: Reports: Diabetes Mellitus Type 2 Malignancy Medical History: Reports: Breast Cancer, Colorectal Cancer GI Medical History: Reports: Gastroesophageal Reflux Disease - 6 years- takes meds Musculoskeltal Medical History: Reports: Arthritis, Other - osteoporosis Past Surgical History Past Surgical History: Reports: Mastectomy, Orthopedic Surgery - Right hip replacement done 05/10/2010, Other - hemicolectomy for colon cancer 1997 Social History Lives with: Alone Smoking Status: Former Smoker Frequency of Alcohol Use: None Hx Recreational Drug Use: No Drugs: None Hx Prescription Drug Abuse: No Family History Family History: Reviewed & Not Pertinent Parental Family History Reviewed: Yes Children Family History Reviewed: Yes Sibling(s) Family History Reviewed.: Yes Medication/Allergy Home Medications: Amlodipine Besylate [Norvasc 10 mg Tablet] 10 mg PO DAILY 05/02/19 Carvedilol [Coreg 25 mg Tablet] 25 mg PO Q12 05/02/19 Doxepin HCl [Sinequan 25 Mg Capsule] 25 mg PO QHS 05/02/19 Ergocalciferol (Vitamin D2) [Drisdol 50,000 Unit (1.25MG) Capsule] 50,000 unit PO SA@1000 05/02/19 Esomeprazole Magnesium [Nexium] 40 mg PO Q6AM 05/02/19 Furosemide [Lasix 40 mg Tablet] 40 mg PO DAILYP PRN 05/02/19 Gabapentin [Neurontin 300 mg Capsule] 300 mg PO Q8 05/02/19 Insulin Glargine,Hum.rec.anlog [Lantus Insulin 100 Unit/1 ml 10 ml] 25 unit SUBCUT DAILY 05/02/19 Losartan/Hydrochlorothiazide [Losartan-Hctz 100-25 mg Tab] 1 each PO DAILY 05/02/19 Omeprazole 40 mg PO Q6AM 05/02/19 Sitagliptin Phosphate [Januvia] 100 mg PO DAILY 05/02/19 Tramadol HCl/Acetaminophen [Tramadol-Acetaminophn 37.5-325] 1 each PO Q6HP PRN 05/02/19 Allergies/Adverse Reactions: iodine [Iodine] Adverse Reaction (Intermediate, Verified 05/02/19 11:46) Rash/itching Review of Systems Constitutional: PRESENT: anorexia Eyes: ABSENT: visual disturbances Ears: ABSENT: hearing changes Cardiovascular: ABSENT: chest pain, dyspnea on exertion, edema, orthropnea, palpitations Respiratory: ABSENT: cough, hemoptysis Gastrointestinal: ABSENT: abdominal pain, constipation, diarrhea, hematemesis, hematochezia, nausea, vomiting Genitourinary: ABSENT: dysuria, hematuria Musculoskeletal: ABSENT: joint swelling Integumentary: ABSENT: rash, wounds Neurological: ABSENT: abnormal gait, abnormal speech, confusion, dizziness, focal weakness, syncope Psychiatric: ABSENT: anxiety, depression, homidical ideation, suicidal ideation Endocrine: ABSENT: cold intolerance, heat intolerance, menstrual abnormalities, polydipsia, polyuria Hematologic/Lymphatic: ABSENT: easy bleeding, easy bruising, lymphadenopathy Physical Exam Vital Signs: Temp Pulse Resp BP Pulse Ox 98.6 F 60 17 112/61 91 L 05/02/19 18:01 05/02/19 13:32 05/02/19 21:08 05/02/19 20:01 05/02/19 21:08 Intake & Output 05/01/19 05/02/19 05/03/19 06:59 06:59 06:59 Intake Total 1000 Balance 1000 Weight 61.8 kg General appearance: PRESENT: mild distress Head exam: PRESENT: atraumatic, normocephalic Eye exam: PRESENT: PERRLA Mouth exam: PRESENT: moist, tongue midline Neck exam: PRESENT: full ROM Respiratory exam: PRESENT: clear to auscultation theresa Cardiovascular exam: PRESENT: RRR, +S1, +S2 Vascular exam: PRESENT: normal capillary refill GI/Abdominal exam: PRESENT: normal bowel sounds, soft Rectal exam: PRESENT: deferred Neurological exam: PRESENT: alert, CN II-XII grossly intact Psychiatric exam: PRESENT: appropriate affect, normal mood Skin exam: PRESENT: dry, intact, warm Results Laboratory Results: 05/02/19 12:35 05/02/19 21:10 05/02/19 05/02/19 05/02/19 12:35 12:35 12:35 WBC 7.7 RBC 3.82 Hgb 10.9 L Hct 32.8 L MCV 86 MCH 28.5 MCHC 33.3 RDW 15.9 H Plt Count 140 L Seg Neutrophils % 77.7 VBG pH VBG pCO2 VBG HCO3 VBG Base Excess Sodium 138.7 Potassium 4.0 Chloride 96 L Carbon Dioxide 30 Anion Gap 13 BUN 80 H Creatinine 4.30 H Est GFR ( Amer) 12 L Glucose 104 Calcium 8.4 Magnesium Total Bilirubin 0.8 AST 32 Alkaline Phosphatase 75 Ammonia Total Protein 7.5 Albumin 3.5 Amylase Lipase Urine Color YELLOW Urine Appearance SLIGHTLY-CLOUDY Urine pH 5.0 Ur Specific [place] 1.010 Urine Protein NEGATIVE Urine Glucose (UA) NEGATIVE Urine Ketones NEGATIVE Urine Blood NEGATIVE Urine Nitrite NEGATIVE Ur Leukocyte Esterase TRACE H Urine WBC (Auto) 3 05/02/19 05/02/19 05/02/19 12:52 21:10 21:10 WBC RBC Hgb Hct MCV MCH MCHC RDW Plt Count Seg Neutrophils % VBG pH 7.40 VBG pCO2 48.6 VBG HCO3 29.1 VBG Base Excess 3.5 Sodium 137.6 Potassium 3.5 L Chloride 98 Carbon Dioxide 28 Anion Gap 12 BUN 72 H Creatinine 4.01 H Est GFR ( Amer) 13 L Glucose 84 Calcium 8.1 L Magnesium 2.3 Total Bilirubin AST Alkaline Phosphatase Ammonia < 8.7 L Total Protein Albumin Amylase 45 Lipase 168.0 Urine Color Urine Appearance Urine pH Ur Specific [place] Urine Protein Urine Glucose (UA) Urine Ketones Urine Blood Urine Nitrite Ur Leukocyte Esterase Urine WBC (Auto) 05/02/19 05/02/19 05/02/19 12:35 12:35 21:10 Creatine Kinase 35 CK-MB (CK-2) 0.81 Troponin I < 0.012 NT-Pro-B Natriuret Pep 438 05/02/19 21:10 Creatine Kinase 41 CK-MB (CK-2) Troponin I NT-Pro-B Natriuret Pep Impressions: Renal Ultrasound 05/02/19 00:00 IMPRESSION: 1. Echogenic kidneys suggestive of medical renal disease. 2. No hydronephrosis or renal stones. Chest X-Ray 05/02/19 12:24 IMPRESSION: Basilar predominant interstitial opacities. Correlate clinically for interstitial lung disease and pulmonary edema. Head CT 05/02/19 12:24 IMPRESSION: No acute intracranial pathology. Small vessel white matter disease. EVIDENCE OF ACUTE STROKE: NO. Assessment & Plan - Diagnosis (1) Acute kidney injury Is this a current diagnosis for this admission?: Yes Plan: This is probably prerenal azotemia, the kidney ultrasound that was done did not demonstrate any hydronephrosis that would suggest post renal azotemia. He combination of hypotension, inadequate intake both food and fluid, medication include antibiotic could be contributing to the acute kidney injury. She will be vigorously treated with IV fluid to maintain normal blood pressure, we will f ollow kidney function serially. (2) Hypotension Qualifiers: Hypotension type: unspecified hypotension type Qualified Code(s): I95.9 - Hypotension, unspecified Is this a current diagnosis for this admission?: Yes Plan: Treated with IV fluid to restore blood pressure (3) Type 2 diabetes mellitus with diabetic chronic kidney disease Qualifiers: Diabetes mellitus supervisor intermediates insulin use: with correction use Chronic kidney disease stage: stage 3 (moderate) Qualified Code(s): E11.22 - Type 2 diabetes mellitus with diabetic chronic kidney disease; N18.3 - Chronic kidney disease, stage 3 (moderate); Z79.4 - nursing home (current) use of insulin Is this a current diagnosis for this admission?: Yes (4) Breast cancer Qualifiers: Breast location: unspecified site of breast Estrogen receptor status: positive Patient sex: female Laterality: right Qualified Code(s): C50.911 - Malignant neoplasm of unspecified site of right female breast; Z17.0 - Estrogen receptor positive status [ER+] Is this a current diagnosis for this admission?: Yes (5) Osteoarthrosis, hip Is this a current diagnosis for this admission?: Yes
[2019-05-02] MEDS: INSULIN LISPRO 100 UNIT/ML 3 ML VIAL SUBCUT SCH (22:30)
[2019-05-02] MEDS: HEPARIN SOD (PORCINE) 5,000 UNIT/ML 1 ML VIAL SUBCUT SCH (22:37)
[2019-05-03 00:47] LABS: APPEARANCE,URINE CLEAR; BILIRUBIN,URINE NEGATIVE (NEGATIVE); COLOR,URINE STRAW; GLUCOSE, URINE NEGATIVE (NEGATIVE); KETONES,URINE NEGATIVE (NEGATIVE); LEUKOCYTE ESTERASE,URINE NEGATIVE (NEGATIVE); NITRITE,URINE NEGATIVE (NEGATIVE); PROTEIN,URINE NEGATIVE (NEGATIVE); URINE SPECIFIC GRAVITY 1.008; UROBILINOGEN,URINE NEGATIVE mg/dL (<2.0)
[2019-05-03 01:18] LABS: URINE AMPHETAMINES SCREEN NEGATIVE; URINE BARBITURATES SCREEN NEGATIVE; URINE BENZODIAZEPINES SCREEN NEGATIVE; URINE COCAINE SCREEN NEGATIVE; URINE MARIJUANA (THC) SCREEN NEGATIVE; URINE METHADONE SCREEN NEGATIVE; URINE PHENCYCLIDINE SCREEN NEGATIVE
[2019-05-03 03:23] LABS: ABSOLUTE EOSINOPHILS # (AUTO) 0.4 10^3/uL (0.0-0.6); ABSOLUTE LYMPHOCYTES (AUTO) 1.4 10^3/uL (0.5-4.7); ABSOLUTE MONOCYTES (AUTO) 0.5 10^3/uL (0.1-1.4); ABSOLUTE NEUT (AUTO) 4.9 10^3/uL (1.7-8.2); BASOPHILS % (AUTO) 0.6 % (0-2); EOSINOPHILS % (AUTO) 4.9 % (0-6); HEMATOCRIT 29.9 % (36.0-47.0); HEMOGLOBIN 9.9 g/dL (12.0-15.5); LYMPHOCYTES % (AUTO) 18.7 % (13-45); MEAN CORPUSCULAR HEMOGLOBIN 28.5 pg (27.0-33.4); MEAN CORPUSCULAR HGB CONC 33.3 g/dL (32.0-36.0); MEAN CORPUSCULAR VOLUME 86 fl (80-97); MONOCYTES % (AUTO) 7.6 % (3-13); PLATELET COUNT 120 10^3/uL (150-450); RED BLOOD COUNT 3.49 10^6/uL (3.72-5.28); SEGMENTED NEUTROPHILS % (AUTO) 68.2 % (42-78); TOTAL CELLS COUNTED % (AUTO) 100 %; WHITE BLOOD COUNT 7.2 10^3/uL (4.0-10.5)
[2019-05-03] MEDS: NORMAL SALINE 1000 ML 1,000 ML IV PRN ×3 (03:37→15:32)
[2019-05-03 03:46] LABS: ALKALINE PHOSPHATASE 63 U/L (38-126); ASPARTATE AMINO TRANSFERASE 26 U/L (14-36); BILIRUBIN,DIRECT 0.3 mg/dL (0.0-0.4); BILIRUBIN,TOTAL 0.4 mg/dL (0.2-1.3); CHOLESTEROL 138.15 mg/dL (0-200); TOTAL PROTEIN 6.6 g/dL (6.3-8.2); TRIGLYCERIDES 187 mg/dL (<150)
[2019-05-03 03:52] LABS: VLDL CHOLESTEROL 37.4 mg/dL (10-31)
[2019-05-03 03:56] LABS: CREATINE KINASE MB 0.57 ng/mL (<4.55)
[2019-05-03 03:58] LABS: DIRECT LDL 70 mg/dL (<100)
[2019-05-03 04:02] LABS: TROPONIN I < 0.012 ng/mL
[2019-05-03] MEDS: HEPARIN SOD (PORCINE) 5,000 UNIT/ML 1 ML VIAL SUBCUT SCH ×3 (05:06→21:39)
[2019-05-03] MEDS: OXYCODONE-ACETAMINOPHEN 5-325 MG TABLET PO PRN ×2 (07:28→16:08)
[2019-05-03] MEDS: INSULIN LISPRO 100 UNIT/ML 3 ML VIAL SUBCUT SCH ×4 (08:13→21:40)
[2019-05-03 10:38] LABS: CREATINE KINASE MB 0.44 ng/mL (<4.55)
[2019-05-03 10:45] LABS: TROPONIN I < 0.012 ng/mL
[2019-05-03 12:40] LABS: ALBUMIN 2.5 g/dL (3.5-5.0); ALKALINE PHOSPHATASE 54 U/L (38-126); ANION GAP 9 (5-19); ASPARTATE AMINO TRANSFERASE 24 U/L (14-36); BILIRUBIN,DIRECT 0.2 mg/dL (0.0-0.4); BILIRUBIN,TOTAL 0.4 mg/dL (0.2-1.3); BLOOD UREA NITROGEN 58 mg/dL (7-20); CALCIUM 7.5 mg/dL (8.4-10.2); CARBON DIOXIDE 27 mmol/L (22-30); CHLORIDE 105 mmol/L (98-107); GLUCOSE 92 mg/dL (75-110); POTASSIUM 3.5 mmol/L (3.6-5.0); TOTAL PROTEIN 5.8 g/dL (6.3-8.2)
[2019-05-03] MEDS ORDERED: (PENDING PHARMACY ID) (Tramadol Hcl/Acetaminophen [Tramadol-Acetaminophn 37.5-325] 1 EACH) PO PRN (18:04)
--- NOTE | 2019-05-03 18:14 | PDOC PROGRESS REPORT ---
Subjective Progress Note for:: 05/03/19 Subjective:: Patient seen by the bedside, the blood pressure is still low, there is improvement in the azotemia, she complain of pain. Reason For Visit: ACUTE KIDNEY INJURY,MULTIPLE CO-MORBID CONDITIONS, Physical Exam Vital Signs: Temp Pulse Resp BP Pulse Ox 98.7 F 79 17 101/42 L 98 05/03/19 16:00 05/03/19 16:00 05/03/19 16:00 05/03/19 16:00 05/03/19 16:00 Intake & Output 05/02/19 05/03/19 05/04/19 06:59 06:59 06:59 Intake Total 1999 2919 Output Total 1079 Balance 1998 1840 Weight 55.7 kg General appearance: PRESENT: no acute distress Eye exam: PRESENT: PERRLA Respiratory exam: PRESENT: clear to auscultation theresa Cardiovascular exam: PRESENT: +S1, +S2 GI/Abdominal exam: PRESENT: soft Neurological exam: PRESENT: alert Results Laboratory Results: 05/03/19 03:05 05/03/19 09:28 05/02/19 05/02/19 05/02/19 21:10 21:10 21:10 WBC RBC Hgb Hct MCV MCH MCHC RDW Plt Count Seg Neutrophils % Sodium 137.6 Potassium 3.5 L Chloride 98 Carbon Dioxide 28 Anion Gap 12 BUN 72 H Creatinine 4.01 H Est GFR ( Amer) 13 L Glucose 84 Calcium 8.1 L Magnesium 2.3 Total Bilirubin AST Alkaline Phosphatase Ammonia < 8.7 L Total Protein Albumin Triglycerides Cholesterol LDL Cholesterol Direct VLDL Cholesterol HDL Cholesterol Amylase 45 Lipase 168.0 TSH 0.62 Urine Color Urine Appearance Urine pH Ur Specific [place] Urine Protein Urine Glucose (UA) Urine Ketones Urine Blood Urine Nitrite Ur Leukocyte Esterase Urine WBC (Auto) Urine RBC (Auto) 05/03/19 05/03/19 05/03/19 00:20 03:05 03:05 WBC 7.2 RBC 3.49 L Hgb 9.9 L Hct 29.9 L MCV 86 MCH 28.5 MCHC 33.3 RDW 15.0 H Plt Count 120 L Seg Neutrophils % 68.2 Sodium Potassium Chloride Carbon Dioxide Anion Gap BUN Creatinine Est GFR ( Amer) Glucose Calcium Magnesium Total Bilirubin 0.4 AST 26 Alkaline Phosphatase 63 Ammonia Total Protein 6.6 Albumin 3.0 L Triglycerides 187 H Cholesterol 138.15 LDL Cholesterol Direct 70 VLDL Cholesterol 37.4 H HDL Cholesterol 17 L Amylase Lipase TSH Urine Color STRAW Urine Appearance CLEAR Urine pH 5.0 Ur Specific [place] 1.008 Urine Protein NEGATIVE Urine Glucose (UA) NEGATIVE Urine Ketones NEGATIVE Urine Blood NEGATIVE Urine Nitrite NEGATIVE Ur Leukocyte Esterase NEGATIVE Urine WBC (Auto) 3 Urine RBC (Auto) 1 05/03/19 09:28 WBC RBC Hgb Hct MCV MCH MCHC RDW Plt Count Seg Neutrophils % Sodium 141.0 Potassium 3.5 L Chloride 105 Carbon Dioxide 27 Anion Gap 9 BUN 58 H Creatinine 3.20 H Est GFR ( Amer) 17 L Glucose 92 Calcium 7.5 L Magnesium Total Bilirubin 0.4 AST 24 Alkaline Phosphatase 54 Ammonia Total Protein 5.8 L Albumin 2.5 L Triglycerides Cholesterol LDL Cholesterol Direct VLDL Cholesterol HDL Cholesterol Amylase Lipase TSH Urine Color Urine Appearance Urine pH Ur Specific [place] Urine Protein Urine Glucose (UA) Urine Ketones Urine Blood Urine Nitrite Ur Leukocyte Esterase Urine WBC (Auto) Urine RBC (Auto) 05/02/19 05/02/19 05/02/19 12:35 12:35 21:10 Creatine Kinase 35 CK-MB (CK-2) 0.81 Troponin I < 0.012 NT-Pro-B Natriuret Pep 438 05/02/19 05/02/19 05/03/19 21:10 21:10 03:05 Creatine Kinase 41 45 CK-MB (CK-2) 0.51 Troponin I < 0.012 NT-Pro-B Natriuret Pep 05/03/19 05/03/19 05/03/19 03:05 09:28 09:28 Creatine Kinase 42 CK-MB (CK-2) 0.57 0.44 Troponin I < 0.012 < 0.012 NT-Pro-B Natriuret Pep Impressions: Renal Ultrasound 05/02/19 00:00 IMPRESSION: 1. Echogenic kidneys suggestive of medical renal disease. 2. No hydronephrosis or renal stones. Chest X-Ray 05/02/19 12:24 IMPRESSION: Basilar predominant interstitial opacities. Correlate clinically for interstitial lung disease and pulmonary edema. Head CT 05/02/19 12:24 IMPRESSION: No acute intracranial pathology. Small vessel white matter disease. EVIDENCE OF ACUTE STROKE: NO. Assessment & Plan - Diagnosis (1) Acute kidney injury Is this a current diagnosis for this admission?: Yes Plan: The acute kidney injury is improving on fluid therapy (2) Hypotension Qualifiers: Hypotension type: unspecified hypotension type Qualified Code(s): I95.9 - Hypotension, unspecified Is this a current diagnosis for this admission?: Yes Plan: We will continue to hold blood pressure medications (3) Type 2 diabetes mellitus with diabetic chronic kidney disease Qualifiers: Diabetes mellitus cafeteria director insulin use: with skilled nursing use Chronic kidney disease stage: stage 3 (moderate) Qualified Code(s): E11.22 - Type 2 diabetes mellitus with diabetic chronic kidney disease; N18.3 - Chronic kidney disease, stage 3 (moderate); Z79.4 - laboratory technician (current) use of insulin Is this a current diagnosis for this admission?: Yes (4) Breast cancer Qualifiers: Breast location: unspecified site of breast Estrogen receptor status: positive Patient sex: female Laterality: right Qualified Code(s): C50.911 - Malignant neoplasm of unspecified site of right female breast; Z17.0 - Estrogen receptor positive status [ER+] Is this a current diagnosis for this admission?: Yes (5) Osteoarthrosis, hip Is this a current diagnosis for this admission?: Yes - Time Time Spent with patient: 35 or more minutes Level of Care: IMCU - Plan Summary Plan Summary: She will continue IV fluid therapy, the blood pressure medication still on hold, this will be continue
[2019-05-03] MEDS ORDERED: GABAPENTIN 300 MG CAPSULE PO ONE (19:15)
[2019-05-03] MEDS ORDERED: INSULIN GLARGINE,HUM.REC.ANLOG 1,000 UNIT/10 ML VIAL (PYX) SUBCUT ONE ×2 (19:15→21:42)
[2019-05-03] MEDS ORDERED: ONDANSETRON HCL INJ/PF 4 MG/2 ML SDV IV PRN (19:31)
[2019-05-03] MEDS ORDERED: DOXEPIN HCL 25 MG CAPSULE ONE (21:26)
[2019-05-03] MEDS: DOXEPIN HCL 25 MG CAPSULE PO SCH (21:47)
[2019-05-04] MEDS: NORMAL SALINE 1000 ML 1,000 ML IV PRN ×3 (01:38→23:00)
[2019-05-04 04:50] LABS: ABSOLUTE EOSINOPHILS # (AUTO) 0.3 10^3/uL (0.0-0.6); ABSOLUTE LYMPHOCYTES (AUTO) 1.1 10^3/uL (0.5-4.7); ABSOLUTE MONOCYTES (AUTO) 0.5 10^3/uL (0.1-1.4); ABSOLUTE NEUT (AUTO) 3.8 10^3/uL (1.7-8.2); BASOPHILS % (AUTO) 0.7 % (0-2); EOSINOPHILS % (AUTO) 4.9 % (0-6); HEMATOCRIT 25.8 % (36.0-47.0); HEMOGLOBIN 8.7 g/dL (12.0-15.5); LYMPHOCYTES % (AUTO) 19.2 % (13-45); MEAN CORPUSCULAR HEMOGLOBIN 28.8 pg (27.0-33.4); MEAN CORPUSCULAR HGB CONC 33.8 g/dL (32.0-36.0); MEAN CORPUSCULAR VOLUME 85 fl (80-97); MONOCYTES % (AUTO) 8.8 % (3-13); RED BLOOD COUNT 3.02 10^6/uL (3.72-5.28); RED CELL DISTRIBUTION WIDTH 15.7 % (11.5-14.0); SEGMENTED NEUTROPHILS % (AUTO) 66.4 % (42-78); TOTAL CELLS COUNTED % (AUTO) 100 %; WHITE BLOOD COUNT 5.8 10^3/uL (4.0-10.5)
[2019-05-04 05:08] LABS: PLATELET COUNT 92 10^3/uL (150-450)
[2019-05-04 05:11] LABS: ALBUMIN 2.3 g/dL (3.5-5.0); ALKALINE PHOSPHATASE 62 U/L (38-126); ASPARTATE AMINO TRANSFERASE 24 U/L (14-36); BILIRUBIN,DIRECT 0.2 mg/dL (0.0-0.4); BILIRUBIN,TOTAL 0.3 mg/dL (0.2-1.3); TOTAL PROTEIN 5.4 g/dL (6.3-8.2)
[2019-05-04] MEDS: HEPARIN SOD (PORCINE) 5,000 UNIT/ML 1 ML VIAL SUBCUT SCH ×3 (05:39→21:27)
[2019-05-04] MEDS: PANTOPRAZOLE SODIUM 40 MG TABLET.DR PO SCH (05:40)
[2019-05-04] MEDS: INSULIN LISPRO 100 UNIT/ML 3 ML VIAL SUBCUT SCH ×4 (09:13→21:32)
[2019-05-04] MEDS: SITAGLIPTIN PHOSPHATE 25 MG TABLET PO SCH (09:34)
[2019-05-04] MEDS: INSULIN GLARGINE,HUM.REC.ANLOG 1,000 UNIT/10 ML VIAL SUBCUT SCH (09:34)
[2019-05-04 11:35] LABS: ANION GAP 7 (5-19); CALCIUM 7.2 mg/dL (8.4-10.2); CARBON DIOXIDE 26 mmol/L (22-30); CHLORIDE 111 mmol/L (98-107); GLUCOSE 83 mg/dL (75-110); POTASSIUM 3.5 mmol/L (3.6-5.0)
[2019-05-04 11:44] LABS: BLOOD UREA NITROGEN 37 mg/dL (7-20)
--- NOTE | 2019-05-04 13:58 | PDOC PROGRESS REPORT ---
Subjective Progress Note for:: 05/04/19 Subjective:: Patient seen by the bedside, the serum creatinine continues to improve slowly with hydration Reason For Visit: ACUTE KIDNEY INJURY,MULTIPLE CO-MORBID CONDITIONS, Physical Exam Vital Signs: Temp Pulse Resp BP Pulse Ox 98.5 F 68 17 115/61 98 05/04/19 11:59 05/04/19 11:59 05/04/19 11:59 05/04/19 11:59 05/04/19 11:59 Intake & Output 05/03/19 05/04/19 05/05/19 06:59 06:59 06:59 Intake Total 1999 4159 1720 Output Total 2079 0 Balance 1998 2079 1719 Weight 55.7 kg 58.5 kg General appearance: PRESENT: no acute distress Eye exam: PRESENT: PERRLA Respiratory exam: PRESENT: clear to auscultation theresa Cardiovascular exam: PRESENT: +S1, +S2 GI/Abdominal exam: PRESENT: soft Neurological exam: PRESENT: alert Results Laboratory Results: 05/04/19 04:06 05/04/19 04:06 05/04/19 05/04/19 05/04/19 04:06 04:06 04:06 WBC 5.8 RBC 3.02 L Hgb 8.7 L Hct 25.8 L MCV 85 MCH 28.8 MCHC 33.8 RDW 15.7 H Plt Count 92 L Seg Neutrophils % 66.4 Sodium 143.6 Potassium 3.5 L Chloride 111 H Carbon Dioxide 26 Anion Gap 7 BUN 37 H D Creatinine 2.15 H Est GFR ( Amer) 26 L Glucose 83 Calcium 7.2 L Total Bilirubin 0.3 AST 24 Alkaline Phosphatase 62 Total Protein 5.4 L Albumin 2.3 L 05/02/19 05/02/19 05/02/19 12:35 12:35 21:10 Creatine Kinase 35 CK-MB (CK-2) 0.81 Troponin I < 0.012 NT-Pro-B Natriuret Pep 438 05/02/19 05/02/19 05/03/19 21:10 21:10 03:05 Creatine Kinase 41 45 CK-MB (CK-2) 0.51 Troponin I < 0.012 NT-Pro-B Natriuret Pep 05/03/19 05/03/19 05/03/19 03:05 09:28 09:28 Creatine Kinase 42 CK-MB (CK-2) 0.57 0.44 Troponin I < 0.012 < 0.012 NT-Pro-B Natriuret Pep Impressions: Renal Ultrasound 05/02/19 00:00 IMPRESSION: 1. Echogenic kidneys suggestive of medical renal disease. 2. No hydronephrosis or renal stones. Chest X-Ray 05/02/19 12:24 IMPRESSION: Basilar predominant interstitial opacities. Correlate clinically for interstitial lung disease and pulmonary edema. Head CT 05/02/19 12:24 IMPRESSION: No acute intracranial pathology. Small vessel white matter disease. EVIDENCE OF ACUTE STROKE: NO. Assessment & Plan - Diagnosis (1) Acute kidney injury Is this a current diagnosis for this admission?: Yes Plan: Continue hydration with fluid (2) Hypotension Qualifiers: Hypotension type: unspecified hypotension type Qualified Code(s): I95.9 - Hypotension, unspecified Is this a current diagnosis for this admission?: Yes (3) Type 2 diabetes mellitus with diabetic chronic kidney disease Qualifiers: Diabetes mellitus plant sciences professor insulin use: with plant sciences professor use Chronic kidney disease stage: stage 3 (moderate) Qualified Code(s): E11.22 - Type 2 diabetes mellitus with diabetic chronic kidney disease; N18.3 - Chronic kidney disease, stage 3 (moderate); Z79.4 - coal mine inspector (current) use of insulin Is this a current diagnosis for this admission?: Yes (4) Breast cancer Qualifiers: Breast location: unspecified site of breast Estrogen receptor status: positive Patient sex: female Laterality: right Qualified Code(s): C50.911 - Malignant neoplasm of unspecified site of right female breast; Z17.0 - Estrogen receptor positive status [ER+] Is this a current diagnosis for this admission?: Yes (5) Osteoarthrosis, hip Is this a current diagnosis for this admission?: Yes - Time Time Spent with patient: 15-24 minutes
[2019-05-04] MEDS: GABAPENTIN 300 MG CAPSULE PO SCH ×2 (14:31→21:28)
[2019-05-04] MEDS: DOXEPIN HCL 25 MG CAPSULE PO SCH (21:28)
[2019-05-05 05:00] LABS: ABSOLUTE EOSINOPHILS # (AUTO) 0.3 10^3/uL (0.0-0.6); ABSOLUTE LYMPHOCYTES (AUTO) 1.4 10^3/uL (0.5-4.7); ABSOLUTE MONOCYTES (AUTO) 0.5 10^3/uL (0.1-1.4); BASOPHILS % (AUTO) 0.8 % (0-2); EOSINOPHILS % (AUTO) 5.3 % (0-6); HEMATOCRIT 27.1 % (36.0-47.0); LYMPHOCYTES % (AUTO) 21.6 % (13-45); MEAN CORPUSCULAR HEMOGLOBIN 28.5 pg (27.0-33.4); MEAN CORPUSCULAR HGB CONC 33.1 g/dL (32.0-36.0); MEAN CORPUSCULAR VOLUME 86 fl (80-97); RED BLOOD COUNT 3.15 10^6/uL (3.72-5.28); RED CELL DISTRIBUTION WIDTH 15.5 % (11.5-14.0); SEGMENTED NEUTROPHILS % (AUTO) 64.3 % (42-78); TOTAL CELLS COUNTED % (AUTO) 100 %; WHITE BLOOD COUNT 6.3 10^3/uL (4.0-10.5)
[2019-05-05 05:16] LABS: ALBUMIN 2.4 g/dL (3.5-5.0); ALKALINE PHOSPHATASE 88 U/L (38-126); ANION GAP 7 (5-19); ASPARTATE AMINO TRANSFERASE 29 U/L (14-36); BILIRUBIN,DIRECT 0.2 mg/dL (0.0-0.4); BILIRUBIN,TOTAL 0.3 mg/dL (0.2-1.3); BLOOD UREA NITROGEN 23 mg/dL (7-20); CALCIUM 7.7 mg/dL (8.4-10.2); CARBON DIOXIDE 27 mmol/L (22-30); CHLORIDE 112 mmol/L (98-107); GLUCOSE 92 mg/dL (75-110); POTASSIUM 3.5 mmol/L (3.6-5.0); TOTAL PROTEIN 5.7 g/dL (6.3-8.2)
[2019-05-05 05:35] LABS: PLATELET COUNT 87 10^3/uL (150-450)
[2019-05-05] MEDS: HEPARIN SOD (PORCINE) 5,000 UNIT/ML 1 ML VIAL SUBCUT SCH ×2 (05:43→14:35)
[2019-05-05] MEDS: PANTOPRAZOLE SODIUM 40 MG TABLET.DR PO SCH (05:43)
[2019-05-05] MEDS: GABAPENTIN 300 MG CAPSULE PO SCH ×2 (05:43→13:47)
--- NOTE | 2019-05-05 08:29 | PDOC DISCHARGE SUMMARY ---
Impression - Admit/DC Date/PCP Admission Date/Primary Care Provider: 05/02/19 14:32 VINCENT MALIK MD Discharge Date: 05/05/19 - Discharge Diagnosis (1) Acute kidney injury Is this a current diagnosis for this admission?: Yes (2) Hypotension Is this a current diagnosis for this admission?: Yes (3) Type 2 diabetes mellitus with diabetic chronic kidney disease Is this a current diagnosis for this admission?: Yes (4) Breast cancer Is this a current diagnosis for this admission?: Yes (5) Osteoarthrosis, hip Is this a current diagnosis for this admission?: Yes - Additional Information Referrals: VINCENT MALIK MD [Primary Care Provider] - 05/19/19 2:00 pm Home Medications: Amlodipine Besylate [Norvasc 10 mg Tablet] 10 mg PO DAILY 05/02/19 Carvedilol [Coreg 25 mg Tablet] 25 mg PO Q12 05/02/19 Doxepin HCl [Sinequan 25 mg Capsule] 25 mg PO QHS 05/02/19 Ergocalciferol (Vitamin D2) [Drisdol 50,000 unit (1.25MG) Capsule] 50,000 unit PO SA@1000 05/02/19 Gabapentin [Neurontin 300 mg Capsule] 300 mg PO Q8 05/02/19 Insulin Glargine,Hum.rec.anlog [Lantus Insulin 100 Unit/1 ml 10 ml] 25 unit SUBCUT DAILY 05/02/19 Losartan/Hydrochlorothiazide [Losartan-Hctz 100-25 mg Tab] 1 each PO DAILY 05/02/19 Omeprazole 40 mg PO Q6AM 05/02/19 Sitagliptin Phosphate [Januvia] 100 mg PO DAILY 05/02/19 Tramadol HCl/Acetaminophen [Tramadol-Acetaminophn 37.5-325] 1 each PO Q6HP PRN 05/02/19 History of Present Illiness History of Present Illness: COLETTE TOMAS is a 83 year old female, patient is well-known to me, 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 In the emergency room she was found to have serum creatinine of 4 consistent with acute kidney injury, at baseline serum creatinine is about 1.8. Hospital Course Hospital Course: Patient was admitted for the management of hypotension, acute kidney injury, on admission the serum creatinine was 4, she was vigorously hydrated with normal saline with yazidism of volume there is near normalization of serum creatinine.. Kidney ultrasound was done there was no hydronephrosis to suggest post renal azotemia Physical Exam Vital Signs: Temp Pulse Resp BP Pulse Ox 98.7 F 65 20 130/65 H 98 05/05/19 04:22 05/05/19 07:00 05/05/19 04:22 05/05/19 04:22 05/05/19 04:22 Intake & Output 05/04/19 05/05/19 05/06/19 06:59 06:59 06:59 Intake Total 4160 2840 Output Total 2080 2200 Balance 2080 640 Weight 58.5 kg 59.8 kg General appearance: PRESENT: no acute distress Eye exam: PRESENT: PERRLA Respiratory exam: PRESENT: clear to auscultation theresa Cardiovascular exam: PRESENT: +S1, +S2 GI/Abdominal exam: PRESENT: soft Neurological exam: PRESENT: alert, CN II-XII grossly intact Results Laboratory Results: WBC 6.3 10^3/uL (4.0-10.5) 05/05/19 04:08 RBC 3.15 10^6/uL (3.72-5.28) L 05/05/19 04:08 Hgb 9.0 g/dL (12.0-15.5) L 05/05/19 04:08 Hct 27.1 % (36.0-47.0) L 05/05/19 04:08 MCV 86 fl (80-97) 05/05/19 04:08 MCH 28.5 pg (27.0-33.4) 05/05/19 04:08 MCHC 33.1 g/dL (32.0-36.0) 05/05/19 04:08 RDW 15.5 % (11.5-14.0) H 05/05/19 04:08 Plt Count 87 10^3/uL (150-450) L 05/05/19 04:08 Lymph % (Auto) 21.6 % (13-45) 05/05/19 04:08 [place] % (Auto) 8.0 % (3-13) 05/05/19 04:08 Eos % (Auto) 5.3 % (0-6) 05/05/19 04:08 Baso % (Auto) 0.8 % (0-2) 05/05/19 04:08 Absolute Neuts (auto) 4.0 10^3/uL (1.7-8.2) 05/05/19 04:08 Absolute Lymphs (auto) 1.4 10^3/uL (0.5-4.7) 05/05/19 04:08 Absolute Monos (auto) 0.5 10^3/uL (0.1-1.4) 05/05/19 04:08 Absolute Eos (auto) 0.3 10^3/uL (0.0-0.6) 05/05/19 04:08 Absolute Basos (auto) 0.0 10^3/uL (0.0-0.2) 05/05/19 04:08 Seg Neutrophils % 64.3 % (42-78) 05/05/19 04:08 PT 15.2 SEC (11.4-15.4) 05/02/19 21:10 INR 1.19 05/02/19 21:10 APTT 42.5 SEC (23.5-35.8) H 05/02/19 21:10 VBG pH 7.40 (7.30-7.42) 05/02/19 12:52 VBG pCO2 48.6 mmHg (35-63) 05/02/19 12:52 VBG HCO3 29.1 mmol/L (20-32) 05/02/19 12:52 VBG Base Excess 3.5 mmol/L 05/02/19 12:52 Sodium 145.7 mmol/L (137-145) H 05/05/19 04:08 Potassium 3.5 mmol/L (3.6-5.0) L 05/05/19 04:08 Chloride 112 mmol/L (98-107) H 05/05/19 04:08 Carbon Dioxide 27 mmol/L (22-30) 05/05/19 04:08 Anion Gap 7 (5-19) 05/05/19 04:08 BUN 23 mg/dL (7-20) H 05/05/19 04:08 Creatinine 1.47 mg/dL (0.52-1.25) H 05/05/19 04:08 Est GFR ( Amer) 41 (>60) L 05/05/19 04:08 Est GFR (MDRD) Non-Af 34 (>60) L 05/05/19 04:08 Glucose 92 mg/dL (75-110) 05/05/19 04:08 POC Glucose 97 mg/dL (70-110) 05/05/19 07:52 Hemoglobin A1c % 6.5 % (4.7-6.0) H 05/03/19 03:05 Lactic Acid (Sepsis) 1.0 mmol/L (0.7-2.1) 05/02/19 18:35 Calcium 7.7 mg/dL (8.4-10.2) L 05/05/19 04:08 Magnesium 2.3 mg/dL (1.6-2.3) 05/02/19 21:10 Total Bilirubin 0.3 mg/dL (0.2-1.3) 05/05/19 04:08 Direct Bilirubin 0.2 mg/dL (0.0-0.4) 05/05/19 04:08 Neonat Total Bilirubin Not Reportable 05/05/19 04:08 Neonat Direct Bilirubin Not Reportable 05/05/19 04:08 Neonat Indirect Bili Not Reportable 05/05/19 04:08 AST 29 U/L (14-36) 05/05/19 04:08 ALT 12 U/L (<35) 05/05/19 04:08 Alkaline Phosphatase 88 U/L (38-126) 05/05/19 04:08 Ammonia < 8.7 umol/L (9-33) L 05/02/19 21:10 Creatine Kinase 42 U/L (30-135) 05/03/19 09:28 CK-MB (CK-2) 0.44 ng/mL (<4.55) 05/03/19 09:28 Troponin I < 0.012 ng/mL 05/03/19 09:28 NT-Pro-B Natriuret Pep 438 pg/mL (<450) 05/02/19 21:10 Total Protein 5.7 g/dL (6.3-8.2) L 05/05/19 04:08 Albumin 2.4 g/dL (3.5-5.0) L 05/05/19 04:08 Triglycerides 187 mg/dL (<150) H 05/03/19 03:05 Cholesterol 138.15 mg/dL (0-200) 05/03/19 03:05 LDL Cholesterol Direct 70 mg/dL (<100) 05/03/19 03:05 VLDL Cholesterol 37.4 mg/dL (10-31) H 05/03/19 03:05 HDL Cholesterol 17 mg/dL (>40) L 05/03/19 03:05 Amylase 45 U/L (30-110) 05/02/19 21:10 Lipase 168.0 U/L (23-300) 05/02/19 21:10 TSH 0.62 uIU/mL (0.47-4.68) 05/02/19 21:10 PTH Intact 82.6 pg/mL (10.0-65.0) H 05/04/19 14:35 Urine Color STRAW 05/03/19 00:20 Urine Appearance CLEAR 05/03/19 00:20 Urine pH 5.0 (5.0-9.0) 05/03/19 00:20 Ur Specific [place] 1.008 05/03/19 00:20 Urine Protein NEGATIVE mg/dL (NEGATIVE) 05/03/19 00:20 Urine Glucose (UA) NEGATIVE mg/dL (NEGATIVE) 05/03/19 00:20 Urine Ketones NEGATIVE mg/dL (NEGATIVE) 05/03/19 00:20 Urine Blood NEGATIVE (NEGATIVE) 05/03/19 00:20 Urine Nitrite NEGATIVE (NEGATIVE) 05/03/19 00:20 Urine Nitrite (Reflex) NEGATIVE (NEGATIVE) 05/02/19 12:35 Urine Bilirubin NEGATIVE (NEGATIVE) 05/03/19 00:20 Urine Urobilinogen NEGATIVE mg/dL (<2.0) 05/03/19 00:20 Ur Leukocyte Esterase NEGATIVE (NEGATIVE) 05/03/19 00:20 Leukocyte Esterase Rfl TRACE (NEGATIVE) H 05/02/19 12:35 Urine WBC (Auto) 3 /HPF 05/03/19 00:20 Urine RBC (Auto) 1 /HPF 05/03/19 00:20 U Hyaline Cast (Auto) 1 /LPF 05/03/19 00:20 Urine WBC (Reflex) 3 /HPF 05/02/19 12:35 Squamous Epi Cells Auto 1 /HPF 05/03/19 00:20 Urine Mucus (Auto) RARE /LPF 05/03/19 00:20 Urine Ascorbic Acid NEGATIVE (NEGATIVE) 05/03/19 00:20 Urine Opiates Screen UNCONFIRMED POSITIVE 05/03/19 00:20 Urine Methadone Screen NEGATIVE 05/03/19 00:20 Ur Barbiturates Screen NEGATIVE 05/03/19 00:20 Ur Phencyclidine Scrn NEGATIVE 05/03/19 00:20 Ur Amphetamines Screen NEGATIVE 05/03/19 00:20 U Benzodiazepines Scrn NEGATIVE 05/03/19 00:20 Urine Cocaine Screen NEGATIVE 05/03/19 00:20 U Marijuana (THC) Screen NEGATIVE 05/03/19 00:20 05/02/19 05/02/19 05/02/19 12:35 21:10 21:10 CK-MB (CK-2) 0.81 0.51 Troponin I < 0.012 < 0.012 NT-Pro-B Natriuret Pep 438 05/03/19 05/03/19 03:05 09:28 CK-MB (CK-2) 0.57 0.44 Troponin I < 0.012 < 0.012 NT-Pro-B Natriuret Pep Impressions: Renal Ultrasound 05/02/19 00:00 IMPRESSION: 1. Echogenic kidneys suggestive of medical renal disease. 2. No hydronephrosis or renal stones. Chest X-Ray 05/02/19 12:24 IMPRESSION: Basilar predominant interstitial opacities. Correlate clinically for interstitial lung disease and pulmonary edema. Head CT 05/02/19 12:24 IMPRESSION: No acute intracranial pathology. Small vessel white matter disease. EVIDENCE OF ACUTE STROKE: NO. Stroke Is this a Stroke Patient?: No Acute Heart Failure - Is this a Heart Failure Patient?: No
[2019-05-05] MEDS: INSULIN LISPRO 100 UNIT/ML 3 ML VIAL SUBCUT SCH ×3 (08:30→17:19)
[2019-05-05] MEDS: INSULIN GLARGINE,HUM.REC.ANLOG 1,000 UNIT/10 ML VIAL SUBCUT SCH (10:30)
[2019-05-05] MEDS: SITAGLIPTIN PHOSPHATE 25 MG TABLET PO SCH (10:31)
[2019-05-05] MEDS: NORMAL SALINE 1000 ML 1,000 ML IV PRN (12:54)
[2019-05-05 20:49] VITALS: BP 94/54
[2019-05-10] MEDS ORDERED: ERGOCALCIFEROL (VITAMIN D2) 50000 UNIT (1.25 MG) CAPSULE PO SCH (10:00)
== END 2019-05-05 21:11 | disposition home or self-care (01) | DRG 684 ==
LOC: ER 11:05 → EH 14:32 → 3N 22:04
PROVIDERS: ADMIT Internal Medicine; ATTEND Internal Medicine
DX: N17.9 Acute kidney failure, unspecified (principal); C50.911 Malignant neoplasm of unspecified site of right female breast; R55 Syncope and collapse; I95.9 Hypotension, unspecified; E11.22 Type 2 diabetes mellitus with diabetic chronic kidney disease; N18.3 Chronic kidney disease, stage 3 (moderate); I12.9 Hypertensive chronic kidney disease with stage 1 through stage 4 chronic kidney disease, or unspecified chronic kidney disease; K21.9 Gastro-esophageal reflux disease without esophagitis; E11.21 Type 2 diabetes mellitus with diabetic nephropathy; E78.00 Pure hypercholesterolemia, unspecified; M81.0 Age-related osteoporosis without current pathological fracture; Z60.2 Problems related to living alone; Z79.899 Other long term (current) drug therapy; Z79.84 Long term (current) use of oral hypoglycemic drugs; Z79.82 Long term (current) use of aspirin; Z79.4 Long term (current) use of insulin; Z17.0 Estrogen receptor positive status [ER+]; Z85.038 Personal history of other malignant neoplasm of large intestine; Z90.10 Acquired absence of unspecified breast and nipple; Z90.49 Acquired absence of other specified parts of digestive tract
CPT/HCPCS: 36415; 70450; 71045; 76775; 80048; 80053; 80061; 80076; 80307; 81001; 82140; 82150; 82550; 82553; 82803; 82962; 83036; 83605; 83690; 83735; 83880; 83970; 84443; 84484; 85025; 85610; 85730; 87040; 87070; 87086; 93005; 93010; 96360; 99285; J1815; J2405; J3490; J7030

== ENCOUNTER 2019-07-03 05:59 | Emergency (ER) | payer MEDICARE, OTHER ==
[2019-07-03] MEDS ORDERED: ACETAMINOPHEN 325 MG TABLET PO ONE (06:14)
--- NOTE | 2019-07-03 06:16 | ER Document Report ---
ED General - General Stated Complaint: FALL/PAIN Time Seen by Provider: 07/03/19 06:13 Primary Care Provider: VINCENT MALIK MD [Primary Care Provider] - Follow up in 3-5 days Notes: 83-year-old female presents with fall. Both legs gave out, history of weakness, fell, has left hip pain worse with movement and left forehead hematoma with some mild pain. Positive headache no nausea vomiting neck pain. Unknown blood thinners. Denies fever chills or other instigating events. Denies syncope or loss consciousness. TRAVEL OUTSIDE OF THE [place] IN LAST 30 DAYS: No - Related Data Allergies/Adverse Reactions: iodine [Iodine] Adverse Reaction (Intermediate, Verified 05/02/19 11:46) Rash/itching Past Medical History - Social History Smoking Status: Never Smoker Family History: Reviewed & Not Pertinent - Past Medical History Cardiac Medical History: Reports: Hx Hypercholesterolemia, Hx Hypertension Denies: Hx Atrial Fibrillation, Hx Congestive Heart Failure, Hx Coronary Artery Disease, Hx Heart Attack, Hx Peripheral Vascular Disease, Hx Pulmonary Embolism, Hx Heart Murmur Pulmonary Medical History: Reports: Hx Pneumonia Denies: Hx Asthma, Hx Bronchitis, Hx COPD, Hx Respiratory Failure, Hx Sleep Apnea, Hx Tuberculosis Neurological Medical History: Denies: Hx Cerebrovascular Accident, Hx Seizures Endocrine Medical History: Reports: Hx Diabetes Mellitus Type 2. Denies: Hx Graves' Disease, Hx Hyperthyroidism, Hx Hypothyroidism Renal/ Medical History: Denies: Hx Peritoneal Dialysis Malignancy Medical History: Reports: Hx Breast Cancer, Hx Colorectal Cancer. Denies: Hx Lung Cancer GI Medical History: Reports: Hx Gastroesophageal Reflux Disease - 6 years- takes meds. Denies: Hx Crohn's Disease, Hx Hiatal Hernia, Hx Irritable Bowel, Hx Liver Failure, Hx Pancreatitis, Hx Ulcer Musculoskeletal Medical History: Reports Hx Arthritis, Denies Hx Fibromyalgia, Denies Hx Muscular Dystrophy, Denies Hx Systemic Lupus Erythematosus Traumatic Medical History: Denies: Hx Fractures Past Surgical History: Reports: Hx Abdominal Surgery - Partial colectomy, Hx Bowel Surgery - colon cancer/colon resection , Hx Breast Surgery - Jan 2019, Hx Mastectomy, Hx Orthopedic Surgery - Right hip replacement done 05/10/2010, Other - hemicolectomy for colon cancer 1997. Denies: Hx Appendectomy, Hx Section, Hx Cholecystectomy, Hx Colostomy, Hx Coronary Artery Bypass Graft, Hx Gastric Bypass Surgery, Hx Herniorrhaphy, Hx Hysterectomy, Hx Pacemaker, Hx Tonsillectomy, Hx Tubal Ligation - Immunizations Hx Diphtheria, Pertussis, Tetanus Vaccination: No Hx Pneumococcal Vaccination: 05/14/12 Review of Systems - Review of Systems Notes: REVIEW OF SYSTEMS GEN: Denies fever, chills, weight loss ENT: Denies sore throat, nasal discharge, ear pain EYES: Denies blurry vision, eye pain, discharge CV: Denies chest pain, palpitations, edema RESP: Denies cough, shortness of breath, wheezing GI: Denies abdominal pain, nausea, vomiting, diarrhea MSK: Left hip pain SKIN: Denies rash, skin lesions LYMPH: Denies swollen glands/lymph nodes NEURO: Headache PSYCH: Denies depression, suicidal or homicidal ideation PHYSICAL EXAMINATION General: No acute distress, well-nourished Head: Left forehead hematoma normocephalic ENT: Mouth normal, oropharynx moist, no exudates or tonsillar enlargement Eyes: Conjunctiva normal, pupils equal, lids normal Neck: No JVD, supple, no guarding CVS: Normal rate, regular rhythm, no murmurs Resp: No resp distress, equal and normal breath sounds bilaterally GI: Nondistended, soft, no tenderness to palpation, no rebound or guarding Ext: No deformity shortening or rotation but mild pain on left hip range of motion Back: No CVA or midline TTP Skin: No rash, warm Lymphatic: No lymphadeopathy noted Neuro: Awake, alert. Face symmetric. GCS 15. Physical Exam - Vital signs Vitals: Pulse Ox 92 07/03/19 06:00 Course - Re-evaluation Re-evalutation: 07/03/19 08:47 Elderly patient presents with fall left hip pain but no deformity, and hematoma with normal GCS She lives at home has help from neighbors. Her primary care is [facility] Check hip x-ray CT head and C-spine Imaging negative. Able to ambulate with help. Uses walker outside the house not inside the houserecommended full-time walker use and I will notify [facility] to call her in follow-up regarding home safety No evidence of infection or metabolic issues BLS I have discussed with the patient there likely diagnosis, aftercare plan, follow-up plans and my usual and customary return precautions. They verbalized understanding of this. - Vital Signs Vital signs: Temp Pulse Resp BP Pulse Ox 97.5 F 72 16 123/67 98 07/03/19 08:10 07/03/19 08:10 07/03/19 08:10 07/03/19 08:10 07/03/19 08:10 Discharge - Discharge Clinical Impression: Fall from standing Qualifiers: Encounter type: initial encounter Qualified Code(s): W19.XXXA - Unspecified fall, initial encounter Clinical Impression: (Ruled Out): Left parietal scalp hematoma Condition: Good Disposition: HOME, SELF-CARE Instructions: Head Injury Precautions ([facility]) Referrals: VINCENT MALIK MD [Primary Care Provider] - Follow up in 3-5 days
--- NOTE | 2019-07-03 07:23 | RADIOLOGY REPORT (SQ) ---
EXAM DESCRIPTION: CT HEAD WITHOUT IV CONTRAST COMPLETED DATE/TME: 07/03/2019 06:14 CLINICAL HISTORY: fall/pain COMPARISON: 05/02/2019 TECHNIQUE: Axial CT of the head obtained from the skull apex to the skull base without contrast. FINDINGS: No acute intracranial hemorrhage identified. No mass, mass effect, shift of the midline, abnormal extra-axial fluid collection or CT evidence of acute ischemic change identified. The ventricular system and sulcal spaces are age appropriate. Scattered areas of hypodensity throughout the supratentorial white matter are nonspecific and may be related to chronic small vessel ischemic change. The visualized paranasal sinuses and the mastoids are clear. Left frontal scalp soft tissue contusion. No skull fracture identified. Visualized orbits and globes are unremarkable. Atherosclerotic calcification of the intracranial internal carotid arteries. IMPRESSION: 1. No acute intracranial abnormality by CT criteria. This exam was performed according to our departmental dose-optimization program, which includes automated exposure control, adjustment of the mA and/or kV according to patient size and/or use of iterative reconstruction technique.
--- NOTE | 2019-07-03 07:25 | RADIOLOGY REPORT (SQ) ---
EXAM DESCRIPTION: XR HIP 2 OR MORE VIEWS COMPLETED DATE/TME: 07/03/2019 06:14 CLINICAL HISTORY: 83 years, Female, fall pn COMPARISON: None. FINDINGS: 2 views of the pelvis and lateral view of the left hip. Bilateral total hip arthroplasties without hardware abnormality definitely identified. Atherosclerotic vascular calcification. Osteopenia. Degenerative change of the lumbar spine. No acute fracture. IMPRESSION: 1. No acute fracture or dislocation. 2. Bilateral total hip arthroplasties. copyright 2010 [employer]- All Rights Reserved
--- NOTE | 2019-07-03 07:29 | RADIOLOGY REPORT (SQ) ---
EXAM DESCRIPTION: CT CERVICAL SPINE WITHOUT IV CONTRAST COMPLETED DATE/TME: 07/03/2019 06:14 CLINICAL HISTORY: fall pain COMPARISON: None available TECHNIQUE: Axial CT of the cervical spine obtained without contrast. FINDINGS: Straightening of the cervical lordosis may be secondary to patient positioning. The atlantoaxial, atlantodental, and occipitoatlantal intervals are preserved. No fracture identified. Vertebral body height preserved. Prevertebral soft tissues are unremarkable. Moderate to severe multilevel loss of intervertebral disc height. Endplate spondylosis, facet arthropathy, vertebral spurring. Mild to moderate multilevel osseous neural foraminal narrowing. Degenerative spurring of the atlantodental articulation. Osteopenia. Visualized skull base is intact. No fracture of the visualized facial bones. Visualized mastoid air cells and paranasal sinuses are well aerated. Visualized thyroid is unremarkable. No cervical lymphadenopathy. No pneumothorax in the visualized lung apices. Right apical opacities. Atherosclerotic calcified plaque. IMPRESSION: 1. No acute fracture or subluxation of the cervical spine. 2. Severe multilevel degenerative change of the cervical spine. This exam was performed according to our departmental dose-optimization program, which includes automated exposure control, adjustment of the mA and/or kV according to patient size and/or use of iterative reconstruction technique.
[2019-07-03 08:11] VITALS: BP 123/67
== END 2019-07-03 08:15 | disposition home or self-care (01) ==
LOC: ER 05:59
DX: S00.83XA Contusion of other part of head, initial encounter (principal); M25.552 Pain in left hip; W18.30XA Fall on same level, unspecified, initial encounter; E78.00 Pure hypercholesterolemia, unspecified; I10 Essential (primary) hypertension; E11.9 Type 2 diabetes mellitus without complications; Z85.3 Personal history of malignant neoplasm of breast; Z85.038 Personal history of other malignant neoplasm of large intestine; Z90.49 Acquired absence of other specified parts of digestive tract; Z96.641 Presence of right artificial hip joint
CPT/HCPCS: 99285; 82962; 73502; 70450; 72125; A9270

== ENCOUNTER 2020-02-26 13:48 | Emergency (ER) | payer MEDICARE, OTHER ==
[2020-02-26 14:07] VITALS: BP 121/68
[2020-02-26] MEDS ORDERED: NORMAL SALINE 1000 ML 1,000 ML IV ONE (14:43)
[2020-02-26] MEDS ORDERED: ONDANSETRON HCL INJ/PF 4 MG/2 ML SDV IV ONE (14:43)
--- NOTE | 2020-02-26 14:46 | ER Document Report ---
ED Medical Screen (RME) - General Chief Complaint: Dizziness Stated Complaint: DIZZINESS Time Seen by Provider: 02/26/20 14:37 Primary Care Provider: VINCENT MALIK MD [Primary Care Provider] - Follow up as needed Notes: Patient is an 84-year-old female with past medical history of hypertension diabetes presents to the emergency department with a chief complaint of dizziness. Patient states that she has had on and off dizziness for a while. Patient becomes dizzy and feels nauseous and does not want to eat. Patient was started on Megestrol to help improve her appetite. Daughter who is at bedside states that the patient has not been eating well and has had decreased p.o. intake. Daughter states that the patient has only drink about 1 bottle in the past 2 days. Exam: Alert and oriented. I have greeted and performed a rapid initial assessment of this patient. A comprehensive ED assessment and evaluation of the patient, analysis of test results and completion of medical decision making process will be conducted by an additional ED providers. TRAVEL OUTSIDE OF THE [place] IN LAST 30 DAYS: No - Related Data Allergies/Adverse Reactions: iodine [Iodine] Adverse Reaction (Intermediate, Verified 02/26/20 14:38) Rash/itching Past Medical History - Past Medical History Cardiac Medical History: Reports: Hx Hypercholesterolemia, Hx Hypertension Denies: Hx Atrial Fibrillation, Hx Congestive Heart Failure, Hx Coronary Artery Disease, Hx Heart Attack, Hx Peripheral Vascular Disease, Hx Pulmonary Embolism, Hx Heart Murmur Pulmonary Medical History: Reports: Hx Pneumonia Denies: Hx Asthma, Hx Bronchitis, Hx COPD, Hx Respiratory Failure, Hx Sleep Apnea, Hx Tuberculosis Neurological Medical History: Denies: Hx Cerebrovascular Accident, Hx Seizures Endocrine Medical History: Reports: Hx Diabetes Mellitus Type 2. Denies: Hx Graves' Disease, Hx Hyperthyroidism, Hx Hypothyroidism Renal/ Medical History: Denies: Hx Peritoneal Dialysis Malignancy Medical History: Reports: Hx Breast Cancer, Hx Colorectal Cancer. Denies: Hx Lung Cancer GI Medical History: Reports: Hx Gastroesophageal Reflux Disease - 6 years- takes meds. Denies: Hx Crohn's Disease, Hx Hiatal Hernia, Hx Irritable Bowel, Hx Liver Failure, Hx Pancreatitis, Hx Ulcer Musculoskeltal Medical History: Reports Hx Arthritis, Denies Hx Fibromyalgia, Denies Hx Muscular Dystrophy, Denies Hx Systemic Lupus Erythematosus Traumatic Medical History: Denies: Hx Fractures Past Surgical History: Reports: Hx Abdominal Surgery - Partial colectomy, Hx Bowel Surgery - colon cancer/colon resection , Hx Breast Surgery - Jan 2019, Hx Mastectomy, Hx Orthopedic Surgery - Right hip replacement done 05/10/2010, Other - hemicolectomy for colon cancer 1997. Denies: Hx Appendectomy, Hx Section, Hx Cholecystectomy, Hx Colostomy, Hx Coronary Artery Bypass Graft, Hx Gastric Bypass Surgery, Hx Herniorrhaphy, Hx Hysterectomy, Hx Pacemaker, Hx Tonsillectomy, Hx Tubal Ligation - Immunizations Hx Diphtheria, Pertussis, Tetanus Vaccination: No Physical Exam - Vital signs Vitals: Temp Pulse Resp BP Pulse Ox 98.5 F 70 16 121/68 95 02/26/20 14:06 02/26/20 14:06 02/26/20 14:06 02/26/20 14:06 02/26/20 14:06 Course - Vital Signs Vital signs: Temp Pulse Resp BP Pulse Ox 98.5 F 70 16 121/68 95 02/26/20 14:06 02/26/20 14:06 02/26/20 14:06 02/26/20 14:06 02/26/20 14:06 Doctor's Discharge - Discharge Referrals: VINCENT MALIK MD [Primary Care Provider] - Follow up as needed
[2020-02-26 15:51] LABS: ABSOLUTE EOSINOPHILS # (AUTO) 0.3 10^3/uL (0.0-0.6); ABSOLUTE LYMPHOCYTES (AUTO) 2.5 10^3/uL (0.5-4.7); ABSOLUTE MONOCYTES (AUTO) 0.5 10^3/uL (0.1-1.4); ABSOLUTE NEUT (AUTO) 5.6 10^3/uL (1.7-8.2); BASOPHILS % (AUTO) 0.4 % (0-2); EOSINOPHILS % (AUTO) 3.5 % (0-6); HEMATOCRIT 33.7 % (36.0-47.0); HEMOGLOBIN 11.3 g/dL (12.0-15.5); LYMPHOCYTES % (AUTO) 28.1 % (13-45); MEAN CORPUSCULAR HGB CONC 33.6 g/dL (32.0-36.0); MEAN CORPUSCULAR VOLUME 95 fl (80-97); MONOCYTES % (AUTO) 5.5 % (3-13); PLATELET COUNT 236 10^3/uL (150-450); RED BLOOD COUNT 3.53 10^6/uL (3.72-5.28); RED CELL DISTRIBUTION WIDTH 14.5 % (11.5-14.0); SEGMENTED NEUTROPHILS % (AUTO) 62.5 % (42-78); TOTAL CELLS COUNTED % (AUTO) 100 %
[2020-02-26 16:11] LABS: ALBUMIN 4.2 g/dL (3.5-5.0); ALKALINE PHOSPHATASE 107 U/L (38-126); ANION GAP 11 (5-19); ASPARTATE AMINO TRANSFERASE 29 U/L (14-36); BILIRUBIN,DIRECT 0.3 mg/dL (0.0-0.4); BILIRUBIN,TOTAL 0.4 mg/dL (0.2-1.3); BLOOD UREA NITROGEN 67 mg/dL (7-20); CALCIUM 9.4 mg/dL (8.4-10.2); CARBON DIOXIDE 24 mmol/L (22-30); CHLORIDE 101 mmol/L (98-107); GLUCOSE 103 mg/dL (75-110); POTASSIUM 4.6 mmol/L (3.6-5.0); TOTAL PROTEIN 7.9 g/dL (6.3-8.2)
--- NOTE | 2020-02-26 21:53 | EKG REPORT ---
SEVERITY:- ABNORMAL ECG - SINUS RHYTHM LEFT VENTRICULAR HYPERTROPHY : Confirmed by: Carmelo Collins 26-Feb-2020 21:53:11
== END 2020-02-26 22:00 | disposition left against medical advice (07) ==
LOC: ER 13:48
DX: R42 Dizziness and giddiness (principal); I10 Essential (primary) hypertension; E11.9 Type 2 diabetes mellitus without complications; E78.00 Pure hypercholesterolemia, unspecified
CPT/HCPCS: 36415; 80053; 83735; 85025; 93005; 93010; 99281; 99284

== ENCOUNTER 2020-02-27 07:32 | Inpatient (IN) | payer MEDICARE, OTHER ==
[2020-02-27 08:48] LABS: ABSOLUTE EOSINOPHILS # (AUTO) 0.3 10^3/uL (0.0-0.6); ABSOLUTE LYMPHOCYTES (AUTO) 1.8 10^3/uL (0.5-4.7); ABSOLUTE MONOCYTES (AUTO) 0.4 10^3/uL (0.1-1.4); ABSOLUTE NEUT (AUTO) 4.7 10^3/uL (1.7-8.2); BASOPHILS % (AUTO) 0.6 % (0-2); EOSINOPHILS % (AUTO) 4.3 % (0-6); HEMATOCRIT 33.5 % (36.0-47.0); HEMOGLOBIN 11.4 g/dL (12.0-15.5); LYMPHOCYTES % (AUTO) 24.9 % (13-45); MEAN CORPUSCULAR HEMOGLOBIN 32.5 pg (27.0-33.4); MEAN CORPUSCULAR HGB CONC 34.1 g/dL (32.0-36.0); MEAN CORPUSCULAR VOLUME 95 fl (80-97); MONOCYTES % (AUTO) 5.8 % (3-13); PLATELET COUNT 217 10^3/uL (150-450); RED BLOOD COUNT 3.52 10^6/uL (3.72-5.28); RED CELL DISTRIBUTION WIDTH 14.7 % (11.5-14.0); SEGMENTED NEUTROPHILS % (AUTO) 64.4 % (42-78); TOTAL CELLS COUNTED % (AUTO) 100 %; WHITE BLOOD COUNT 7.3 10^3/uL (4.0-10.5)
[2020-02-27 09:01] LABS: ALBUMIN 4.4 g/dL (3.5-5.0); ALKALINE PHOSPHATASE 101 U/L (38-126); ANION GAP 12 (5-19); ASPARTATE AMINO TRANSFERASE 36 U/L (14-36); BILIRUBIN,DIRECT 0.4 mg/dL (0.0-0.4); BILIRUBIN,TOTAL 0.6 mg/dL (0.2-1.3); BLOOD UREA NITROGEN 68 mg/dL (7-20); CALCIUM 9.4 mg/dL (8.4-10.2); CARBON DIOXIDE 24 mmol/L (22-30); CHLORIDE 102 mmol/L (98-107); GLUCOSE 138 mg/dL (75-110); POTASSIUM 4.5 mmol/L (3.6-5.0); TOTAL PROTEIN 8.6 g/dL (6.3-8.2)
[2020-02-27] MEDS ORDERED: NORMAL SALINE 500 ML IV ONE (09:56)
--- NOTE | 2020-02-27 10:14 | RADIOLOGY REPORT (SQ) ---
EXAM DESCRIPTION: CHEST SINGLE VIEW IMAGES COMPLETED DATE/TIME: 02/27/2020 10:05 am REASON FOR STUDY: decreased breath sounds COMPARISON: 05/02/2019 EXAM PARAMETERS: NUMBER OF VIEWS: One view. TECHNIQUE: Single frontal radiographic view of the chest acquired. RADIATION DOSE: NA LIMITATIONS: None. FINDINGS: LUNGS AND PLEURA: No focal consolidation. Chronic interstitial changes greatest at the le ft lung base, stable. No pleural effusion or pneumothorax. MEDIASTINUM AND HILAR STRUCTURES: No masses. Contour normal. HEART AND VASCULAR STRUCTURES: Heart normal in size. Normal vasculature. BONES: No acute bony abnormality. Degenerative changes at the shoulders with unchanged calcified les ions at the bilateral shoulders, possibly heterotopic ossification or calcified joint bodies. HARDWARE: None in the chest. OTHER: No other significant finding. IMPRESSION: Stable chronic interstitial changes without definitive evidence of acute cardiopulmonary process. TECHNICAL DOCUMENTATION: JOB ID: [id number] [employer]- All Rights Reserved Reading location - IP/workstation name: [email or web address]
[2020-02-27 10:45] LABS: APPEARANCE,URINE CLEAR; BILIRUBIN,URINE NEGATIVE (NEGATIVE); COLOR,URINE YELLOW; GLUCOSE, URINE NEGATIVE (NEGATIVE); KETONES,URINE NEGATIVE (NEGATIVE); LEUKOCYTE ESTERASE,URINE TRACE (NEGATIVE); NITRITE,URINE NEGATIVE (NEGATIVE); PROTEIN,URINE NEGATIVE (NEGATIVE); URINE SPECIFIC GRAVITY 1.013; UROBILINOGEN,URINE NEGATIVE mg/dL (<2.0)
--- NOTE | 2020-02-27 10:51 | ER Document Report ---
Entered by BEATA JUSTICE SCRIBE 02/27/20 0954 Acting as scribe for:JOSSELYN VERNON MD ED General - General Chief Complaint: Dizziness Stated Complaint: DIZZINESS Mode of Arrival: Wheelchair Information source: Patient, Relative - Daughter Notes: This 84 year old female patient with a history of hypertension and diabetes mellitus presents to the ED today for evaluation of decreased PO intake due nausea for the past x1 week. Daughter at bedside reports that the patient drank only x1 bottle of water in the past x2 days. She also notes unintentional weight loss. Daughter states that patient was placed on Megestrol by her PCP Dr. Sanabria due to her poor appetite. Patient does report a headache, but denies any chest pain. TRAVEL OUTSIDE OF THE [place] IN LAST 30 DAYS: No - Related Data Allergies/Adverse Reactions: iodine [Iodine] Adverse Reaction (Intermediate, Verified 02/26/20 14:38) Rash/itching Past Medical History - General Information source: Patient, Relative - Daughter, [facility] Records - Social History Smoking Status: Never Smoker Cigarette use (# per day): No Chew tobacco use (# tins/day): No Smoking Education Provided: No Frequency of alcohol use: None Drug Abuse: None Lives with: Alone Family History: Reviewed & Not Pertinent Patient has suicidal ideation: No Patient has homicidal ideation: No - Past Medical History Cardiac Medical History: Reports: Hx Hypercholesterolemia, Hx Hypertension Pulmonary Medical History: Reports: Hx Pneumonia Endocrine Medical History: Reports: Hx Diabetes Mellitus Type 2 Renal/ Medical History: Malignancy Medical History: Reports: Hx Breast Cancer, Hx Colorectal Cancer GI Medical History: Reports: Hx Gastroesophageal Reflux Disease - 6 years- takes meds Musculoskeletal Medical History: Reports Hx Arthritis Past Surgical History: Reports: Hx Abdominal Surgery - Partial colectomy, Hx Bowel Surgery - colon cancer/colon resection, hemicolectomy for colon cancer 1997, Hx Breast Surgery - Jan 2019, Hx Mastectomy, Hx Orthopedic Surgery - Right hip replacement done 05/10/2010 - Immunizations Hx Diphtheria, Pertussis, Tetanus Vaccination: No Hx Pneumococcal Vaccination: 05/14/12 Review of Systems - Review of Systems Constitutional: See HPI, Weight loss EENT: No symptoms reported Cardiovascular: See HPI. denies: Chest pain Respiratory: No symptoms reported Gastrointestinal: See HPI, Nausea, Poor appetite, Poor fluid intake Genitourinary: No symptoms reported Female Genitourinary: No symptoms reported Musculoskeletal: No symptoms reported Skin: No symptoms reported Hematologic/Lymphatic: No symptoms reported Neurological/Psychological: See HPI, Headaches -: Yes All other systems reviewed and negative Physical Exam - Vital signs Vitals: Temp Pulse Resp BP Pulse Ox 98.0 F 72 18 136/74 H 98 02/27/20 07:37 02/27/20 07:37 02/27/20 07:37 02/27/20 07:37 02/27/20 07:37 - General General appearance: Alert In distress: None - HEENT Head: Normocephalic, Atraumatic Eyes: Normal Extraocular movements intact: Yes Pupils: PERRL Neck: Normal, Supple - Respiratory Respiratory status: No respiratory distress Chest status: Nontender Breath sounds: Decreased air movement - Diminished breath sounds in the bases Chest palpation: Normal - Cardiovascular Rhythm: Regular Heart sounds: Normal auscultation, S1 appreciated, S2 appreciated Murmur: No Friction rub: No Gallop: None auscultated Normal capillary refill: Yes - 3 seconds - Abdominal Inspection: Normal Distension: No distension - or ascites Bowel sounds: Normal Tenderness: Nontender - Abdomen soft Organomegaly: No organomegaly - Back Back: Normal, Nontender - Extremities General upper extremity: Normal inspection General lower extremity: Normal inspection. No: Edema - Neurological Neuro grossly intact: Yes Cognition: Normal Orientation: AAOx4 Luca Coma Scale Eye Opening: Spontaneous [place] Coma Scale Verbal: Oriented [place] Coma Scale Motor: Obeys Commands [place] Coma Scale Total: 15 Speech: Normal - Psychological Associated symptoms: Normal affect, Normal mood - Skin Skin Temperature: Warm Skin Moisture: Dry Skin Color: Normal Skin Turgor: Tenting Course - Re-evaluation Re-evalutation: 02/27/20 15:41 Patient with history of dehydration and worsening renal function with acute kidney injury. - Vital Signs Vital signs: Temp Pulse Resp BP Pulse Ox 97.8 F 72 16 126/67 H 99 02/27/20 10:12 02/27/20 07:37 02/27/20 11:00 02/27/20 10:12 02/27/20 11:00 02/27/20 15:41 Vital signs stable. - Laboratory Result Diagrams: 02/27/20 08:18 02/27/20 08:18 Laboratory results interpreted by me: 02/27/20 02/27/2002/26/20 08:18 08:18 10:20 RBC 3.52 L Hgb 11.4 L Hct 33.5 L RDW 14.7 H BUN 68 H Creatinine 2.37 H Est GFR ( Amer) 23 L Est GFR (MDRD) Non-Af 19 L Glucose 138 H Total Protein 8.6 H Ur Leukocyte Esterase TRACE H 02/27/20 15:41 Laboratories show a BUN of 68 and creatinine of 2.37. Patient's glucose is 138 and protein elevated at 8.6. Patient has a mild anemia at 11 and 33. - Diagnostic Test Radiology reviewed: Image reviewed, Reports reviewed Radiology results interpreted by me: 02/27/20 10:47 Chest X-Ray 02/27/20 09:57 IMPRESSION: Stable chronic interstitial changes without definitive evidence of acute cardiopulmonary process. 02/27/20 15:42 Chest x-ray shows no acute process. Patient has chronic interstitial changes noted. - Consults Dr. Sanabria Time consulted: 10:47 Discharge - Discharge Clinical Impression: Acute kidney injury, Dehydration Condition: Good Disposition: ADMITTED INPATIENT Admitting Provider: Daniele Unit Admitted: Medical Floor I personally performed the services described in the documentation, reviewed and edited the documentation which was dictated to the scribe in my presence, and it accurately records my words and actions.
[2020-02-27] MEDS: HEPARIN SOD (PORCINE) 5,000 UNIT/ML 1 ML VIAL SUBCUT SCH ×2 (16:05→22:51)
[2020-02-27 16:27] LABS: CREATINE KINASE MB 0.68 ng/mL (<4.55)
[2020-02-27 16:38] LABS: TROPONIN I < 0.012 ng/mL
[2020-02-27] MEDS ORDERED: GLUCAGON,HUMAN RECOMB 1 MG INJ IM PRN (18:29)
[2020-02-27] MEDS ORDERED: DEXTROSE 40% GEL 15 GM TUBE PO PRN ×2 (18:29)
[2020-02-27] MEDS ORDERED: DEXTROSE 50%-WATER 25 GM/50 ML DISP.SYRIN IV PRN ×2 (18:29)
[2020-02-27] MEDS ORDERED: (PENDING PHARMACY ID) (Megestrol Acetate [Megestrol Acetate] 40 MG) PO SCH (18:45)
[2020-02-27] MEDS ORDERED: (PENDING PHARMACY ID) (Losartan/Hydrochlorothiazide [Losartan-Hctz 100-25 Mg Tab] 1 EACH) PO SCH (18:45)
[2020-02-27] MEDS: NORMAL SALINE 1000 ML 1,000 ML IV PRN (19:15)
[2020-02-27] MEDS: INSULIN LISPRO 100 UNIT/ML 3 ML VIAL SUBCUT SCH ×2 (19:42→22:52)
--- NOTE | 2020-02-27 22:05 | PDOC H&P ---
History of Present Illness Admission Date/PCP: 02/27/20 11:43 VINCENT MALIK MD History of Present Illness: COLETTE TOMAS is a 84 year old female, She has a history of diabetes mellitus complicated with neuropathy nephropathy, CKD stage III with baseline creatinine 1.6 she was in the office 2 days ago for follow-up evaluation, she has lost weight due to poor intake, she said she has no appetite, she was prescribed Megace, appetite stimulant and blood was drawn for metabolic profile, the serum creatinine was 2.65 does suggest acute kidney injury it was felt this was due to dehydration from poor intake, the initial plan was to admit patient directly into the hospital for hydration to correct any prerenal component that could be contributing to kidney injury but no bed was available, she was advised to go to the emergency room, she was in the emergency room yesterday but she left before she was seen, she returned to the ER today for evaluation.She was seen by the ED physician and inpatient care was recommended by the ED physician. Past Medical History Cardiac Medical History: Reports: Hyperlipidema, Hypertension Pulmonary Medical History: Reports: Pneumonia, Other - Interstitial lung disease Endocrine Medical History: Reports: Diabetes Mellitus Type 2 Malignancy Medical History: Reports: Breast Cancer, Colorectal Cancer GI Medical History: Reports: Gastroesophageal Reflux Disease - 6 years- takes meds Musculoskeltal Medical History: Reports: Arthritis Past Surgical History Past Surgical History: Reports: Mastectomy, Orthopedic Surgery - Right hip repla cement done 05/10/2010, Other - hemicolectomy for colon cancer 1997 Social History Lives with: Alone Smoking Status: Never Smoker Frequency of Alcohol Use: None Hx Recreational Drug Use: No Drugs: None Hx Prescription Drug Abuse: No Family History Family History: Reviewed & Not Pertinent Parental Family History Reviewed: Yes Children Family History Reviewed: Yes Sibling(s) Family History Reviewed.: Yes Medication/Allergy Home Medications: Carvedilol [Coreg 25 mg Tablet] 25 mg PO Q12 05/02/19 Doxepin HCl [Sinequan 25 mg Capsule] 50 mg PO QHS 05/02/19 Ergocalciferol (Vitamin D2) [Drisdol 50,000 unit (1.25MG) Capsule] 50,000 unit PO SA@1000 05/02/19 Gabapentin [Neurontin 300 mg Capsule] 300 mg PO Q8 05/02/19 Insulin Glargine,Hum.rec.anlog [Lantus Insulin 100 Unit/1 ml 10 ml] 25 unit SUBCUT DAILY 05/02/19 Losartan/Hydrochlorothiazide [Losartan-Hctz 100-25 mg Tab] 1 each PO DAILY 05/02/19 Aspirin [Ecotrin 81 mg EC Tablet] 81 mg PO DAILY 02/27/20 Furosemide [Lasix 40 mg Tablet] 40 mg PO DAILY 02/27/20 Letrozole 2.5 mg PO DAILY 02/27/20 Megestrol Acetate 40 mg PO BID 02/27/20 Multivitamin 1 each PO DAILY 02/27/20 Omeprazole 20 mg PO Q2D 02/27/20 Sertraline HCl [Zoloft 50 mg Tablet] 50 mg PO DAILY 02/27/20 Sulfamethoxazole/Trimethoprim [Bactrim Ds Tablet] 1 each PO BID 02/27/20 Allergies/Adverse Reactions: iodine [Iodine] Adverse Reaction (Intermediate, Verified 02/26/20 14:38) Rash/itching Review of Systems Constitutional: PRESENT: anorexia, fatigue, weight loss Cardiovascular: ABSENT: as per HPI, chest pain, dyspnea on exertion, edema, orthropnea, palpitations, other Respiratory: ABSENT: cough, hemoptysis Gastrointestinal: ABSENT: abdominal pain, constipation, diarrhea, hematemesis, hematochezia, nausea, vomiting Genitourinary: ABSENT: dysuria, hematuria Musculoskeletal: ABSENT: joint swelling Integumentary: ABSENT: rash, wounds Neurological: ABSENT: abnormal gait, abnormal speech, confusion, dizziness, focal weakness, syncope Psychiatric: ABSENT: anxiety, depression, homidical ideation, suicidal ideation Endocrine: ABSENT: cold intolerance, heat intolerance, menstrual abnormalities, polydipsia, polyuria Hematologic/Lymphatic: ABSENT: easy bleeding, easy bruising, lymphadenopathy Physical Exam Vital Signs: Temp Pulse Resp BP Pulse Ox 98.0 F 65 19 134/66 H 98 02/27/20 19:28 02/27/20 19:28 02/27/20 19:28 02/27/20 19:28 02/27/20 19:28 Intake & Output 02/26/20 02/27/20 02/28/20 06:59 06:59 06:59 Intake Total 560 Balance 560 Weight 56.699 kg General appearance: PRESENT: thin Head exam: PRESENT: atraumatic, normocephalic Eye exam: PRESENT: PERRLA, other Mouth exam: PRESENT: dry mucosa Neck exam: PRESENT: full ROM Respiratory exam: PRESENT: clear to auscultation theresa Cardiovascular exam: PRESENT: RRR, +S1, +S2 Vascular exam: PRESENT: normal capillary refill GI/Abdominal exam: PRESENT: normal bowel sounds, soft Rectal exam: PRESENT: deferred Neurological exam: PRESENT: alert, CN II-XII grossly intact Psychiatric exam: PRESENT: appropriate affect, normal mood Results Laboratory Results: 02/27/20 08:18 02/27/20 08:18 02/27/20 02/27/20 02/27/20 08:18 08:18 10:20 WBC 7.3 RBC 3.52 L Hgb 11.4 L Hct 33.5 L MCV 95 MCH 32.5 MCHC 34.1 RDW 14.7 H Plt Count 217 Seg Neutrophils % 64.4 Sodium 137.7 Potassium 4.5 Chloride 102 Carbon Dioxide 24 Anion Gap 12 BUN 68 H Creatinine 2.37 H Est GFR ( Amer) 23 L Glucose 138 H Calcium 9.4 Total Bilirubin 0.6 AST 36 Alkaline Phosphatase 101 Total Protein 8.6 H Albumin 4.4 Urine Color YELLOW Urine Appearance CLEAR Urine pH 5.0 Ur Specific [place] 1.013 Urine Protein NEGATIVE Urine Glucose (UA) NEGATIVE Urine Ketones NEGATIVE Urine Blood NEGATIVE Urine Nitrite NEGATIVE Ur Leukocyte Esterase TRACE H Urine WBC (Auto) 15 Urine RBC (Auto) 2 02/27/20 02/27/20 15:45 15:45 Creatine Kinase 43 CK-MB (CK-2) 0.68 Troponin I < 0.012 Impressions: Chest X-Ray 02/27/20 09:57 IMPRESSION: Stable chronic interstitial changes without definitive evidence of acute cardiopulmonary process. Assessment & Plan - Diagnosis (1) Acute kidney injury superimposed on chronic kidney disease Is this a current diagnosis for this admission?: Yes Plan: She has acute kidney injury most likely from dehydration due to poor oral intake from anorexia, She is also on furosemide.The combination of furosemide and poor intake is most likely responsible for the worsening kidney function, she has underlining CKD. will be treated with IV fluids to correct any prerenal component that could be contributing to the kidney injury (2) Dehydration Is this a current diagnosis for this admission?: Yes (3) T2DM (type 2 diabetes mellitus) Qualifiers: Diabetes mellitus long term acute care registered nurse insulin use: with long term acute care registered nurse use Diabetes mellitus complication status: with neurologic complications Diabetes mellitus complication detail: with polyneuropathy Qualified Code(s): E11.42 - Type 2 diabetes mellitus with diabetic polyneuropathy; Z79.4 - terminal operations manager (current) use of insulin Is this a current diagnosis for this admission?: Yes - Time Time Spent: Greater than 70 Minutes Medications reviewed and adjusted accordingly: Yes Anticipated Discharge Disposition: Home, Self Care Anticipated Discharge Timeframe: within 72 hours
[2020-02-27 22:46] LABS: CREATINE KINASE MB 0.45 ng/mL (<4.55)
[2020-02-27] MEDS: SERTRALINE HCL 50 MG TABLET PO SCH (22:51)
[2020-02-27] MEDS: CARVEDILOL 12.5 MG TABLET PO SCH (22:51)
[2020-02-27] MEDS: ASPIRIN 81 MG TABLET, ENT COATED PO SCH (22:51)
[2020-02-27] MEDS: LOSARTAN POTASSIUM 50 MG TABLET PO SCH (22:51)
[2020-02-27] MEDS: GABAPENTIN 300 MG CAPSULE PO SCH (22:51)
[2020-02-27] MEDS: DOXEPIN HCL 25 MG CAPSULE PO SCH (22:52)
[2020-02-27] MEDS: HYDROCHLOROTHIAZIDE 25 MG TABLET PO SCH (22:53)
[2020-02-27] MEDS: MEGESTROL ACETATE 20 MG TABLET PO SCH (22:54)
[2020-02-27 22:55] LABS: TROPONIN I < 0.012 ng/mL
[2020-02-27] MEDS: LETROZOLE 2.5 MG TABLET PO SCH (22:55)
[2020-02-28] MEDS: GABAPENTIN 300 MG CAPSULE PO SCH ×3 (05:26→21:47)
[2020-02-28] MEDS: HEPARIN SOD (PORCINE) 5,000 UNIT/ML 1 ML VIAL SUBCUT SCH ×3 (05:26→21:48)
[2020-02-28 05:28] LABS: HEMATOCRIT 26.3 % (36.0-47.0); MEAN CORPUSCULAR HEMOGLOBIN 33.1 pg (27.0-33.4); MEAN CORPUSCULAR HGB CONC 34.9 g/dL (32.0-36.0); MEAN CORPUSCULAR VOLUME 95 fl (80-97); PLATELET COUNT 135 10^3/uL (150-450); RED BLOOD COUNT 2.78 10^6/uL (3.72-5.28); RED CELL DISTRIBUTION WIDTH 14.1 % (11.5-14.0); WHITE BLOOD COUNT 5.7 10^3/uL (4.0-10.5)
[2020-02-28] MEDS: NORMAL SALINE 1000 ML 1,000 ML IV PRN ×2 (05:31→22:30)
[2020-02-28 05:38] LABS: HEMOGLOBIN 9.2 g/dL (12.0-15.5)
[2020-02-28 05:43] LABS: ALKALINE PHOSPHATASE 78 U/L (38-126); ANION GAP 7 (5-19); ASPARTATE AMINO TRANSFERASE 25 U/L (14-36); BILIRUBIN,DIRECT 0.3 mg/dL (0.0-0.4); BILIRUBIN,TOTAL 0.4 mg/dL (0.2-1.3); CALCIUM 8.5 mg/dL (8.4-10.2); CARBON DIOXIDE 22 mmol/L (22-30); CHLORIDE 112 mmol/L (98-107); GLUCOSE 110 mg/dL (75-110); POTASSIUM 4.1 mmol/L (3.6-5.0); TOTAL PROTEIN 5.8 g/dL (6.3-8.2)
[2020-02-28 05:48] LABS: CREATINE KINASE MB 0.47 ng/mL (<4.55)
[2020-02-28 05:51] LABS: BLOOD UREA NITROGEN 50 mg/dL (7-20); TROPONIN I < 0.012 ng/mL
[2020-02-28] MEDS: INSULIN LISPRO 100 UNIT/ML 3 ML VIAL SUBCUT SCH ×4 (08:26→21:49)
[2020-02-28] MEDS: LETROZOLE 2.5 MG TABLET PO SCH (09:57)
[2020-02-28] MEDS: ASPIRIN 81 MG TABLET, ENT COATED PO SCH (09:57)
[2020-02-28] MEDS: MULTIVITAMIN TABLET PO SCH (09:57)
[2020-02-28] MEDS: MEGESTROL ACETATE 20 MG TABLET PO SCH (09:58)
[2020-02-28] MEDS ORDERED: ERGOCALCIFEROL (VITAMIN D2) 50000 UNIT (1.25 MG) CAPSULE PO SCH (10:00)
[2020-02-28] MEDS: PANTOPRAZOLE SODIUM 20 MG TABLET.DR PO SCH (10:10)
--- NOTE | 2020-02-28 10:39 | PDOC PROGRESS REPORT ---
Subjective Progress Note for:: 02/28/20 Subjective:: Patient was admitted for the acute renal failure dehydration's Patient started on IV fluid currently getting better Patient's creatinine is 1.60 Patient is otherwise no other concerns per nursing staff Reason For Visit: ACUTE KIDNEY INJURY Physical Exam Vital Signs: Temp Pulse Resp BP Pulse Ox 97.9 F 65 18 118/61 97 02/28/20 07:44 02/28/20 07:44 02/28/20 03:48 02/28/20 07:44 02/28/20 07:44 Intake & Output 02/27/20 02/28/20 02/29/20 06:59 06:59 06:59 Intake Total 1560 Balance 1560 Weight 58.7 kg General appearance: PRESENT: no acute distress Eye exam: PRESENT: PERRLA Mouth exam: PRESENT: neck supple Respiratory exam: PRESENT: clear to auscultation theresa Cardiovascular exam: PRESENT: +S1, +S2 Neurological exam: PRESENT: alert, awake Skin exam: PRESENT: dry Results Laboratory Results: 02/28/20 04:10 02/28/20 04:10 02/27/20 02/28/20 02/28/20 10:20 04:10 04:10 WBC 5.7 RBC 2.78 L Hgb 9.2 L D Hct 26.3 L MCV 95 MCH 33.1 MCHC 34.9 RDW 14.1 H Plt Count 135 L Sodium 140.6 Potassium 4.1 Chloride 112 H Carbon Dioxide 22 Anion Gap 7 BUN 50 H Creatinine 1.60 H Est GFR ( Amer) 37 L Glucose 110 Calcium 8.5 Total Bilirubin 0.4 AST 25 Alkaline Phosphatase 78 Total Protein 5.8 L Albumin 3.0 L Urine Color YELLOW Urine Appearance CLEAR Urine pH 5.0 Ur Specific [place] 1.013 Urine Protein NEGATIVE Urine Glucose (UA) NEGATIVE Urine Ketones NEGATIVE Urine Blood NEGATIVE Urine Nitrite NEGATIVE Ur Leukocyte Esterase TRACE H Urine WBC (Auto) 15 Urine RBC (Auto) 2 02/27/20 02/27/20 02/27/20 15:45 15:45 22:00 Creatine Kinase 43 43 CK-MB (CK-2) 0.68 Troponin I < 0.012 02/27/20 02/28/20 02/28/20 22:00 04:10 04:10 Creatine Kinase 38 CK-MB (CK-2) 0.45 0.47 Troponin I < 0.012 < 0.012 Impressions: Chest X-Ray 02/27/20 09:57 IMPRESSION: Stable chronic interstitial changes without definitive evidence of acute cardiopulmonary process. Assessment & Plan - Diagnosis (1) Acute kidney injury Is this a current diagnosis for this admission?: Yes (2) Dehydration Is this a current diagnosis for this admission?: Yes (3) T2DM (type 2 diabetes mellitus) Qualifiers: Diabetes mellitus intermodal dispatcher insulin use: with intermodal dispatcher use Diabetes mellitus complication status: with neurologic complications Diabetes mellitus complication detail: with polyneuropathy Qualified Code(s): E11.42 - Type 2 diabetes mellitus with diabetic polyneuropathy; Z79.4 - exterminator termite (current) use of insulin Is this a current diagnosis for this admission?: Yes (4) Breast cancer Qualifiers: Breast location: unspecified site of breast Estrogen receptor status: positive Patient sex: female Laterality: right Qualified Code(s): C50.911 - Malignant neoplasm of unspecified site of right female breast; Z17.0 - Estrogen receptor positive status [ER+] Is this a current diagnosis for this admission?: Yes - Time Time Spent with patient: 15-24 minutes Level of Care: IMCU Medications reviewed and adjusted accordingly: Yes Anticipated discharge: Home with Homehealth Anticipated DC Timeframe: Other - Plan Summary Plan Summary: Continues to IV fluid Continues current medications Repeat the BMP in the morning
[2020-02-28] MEDS: HYDROCHLOROTHIAZIDE 25 MG TABLET PO SCH (14:33)
[2020-02-28] MEDS: CARVEDILOL 12.5 MG TABLET PO SCH ×2 (14:33→21:48)
[2020-02-28] MEDS: LOSARTAN POTASSIUM 50 MG TABLET PO SCH (14:33)
[2020-02-28] MEDS: INSULIN GLARGINE,HUM.REC.ANLOG 1,000 UNIT/10 ML VIAL SUBCUT SCH (15:08)
[2020-02-28] MEDS: SERTRALINE HCL 50 MG TABLET PO SCH (21:47)
[2020-02-28] MEDS ORDERED: DOXEPIN HCL 25 MG CAPSULE ONE (23:02)
[2020-02-28] MEDS: DOXEPIN HCL 25 MG CAPSULE PO SCH (23:09)
[2020-02-29] MEDS: HEPARIN SOD (PORCINE) 5,000 UNIT/ML 1 ML VIAL SUBCUT SCH ×3 (05:57→21:08)
[2020-02-29] MEDS: GABAPENTIN 300 MG CAPSULE PO SCH ×3 (06:01→21:08)
[2020-02-29 06:41] LABS: MEAN CORPUSCULAR HEMOGLOBIN 33.2 pg (27.0-33.4); MEAN CORPUSCULAR HGB CONC 34.4 g/dL (32.0-36.0); MEAN CORPUSCULAR VOLUME 96 fl (80-97); PLATELET COUNT 136 10^3/uL (150-450); RED CELL DISTRIBUTION WIDTH 14.9 % (11.5-14.0); WHITE BLOOD COUNT 5.6 10^3/uL (4.0-10.5)
[2020-02-29] MEDS ORDERED: PSYLLIUM SEED-SF 5.85 GM PACKET PO PRN (06:49)
[2020-02-29 07:15] LABS: ANION GAP 6 (5-19); BLOOD UREA NITROGEN 34 mg/dL (7-20); CALCIUM 8.1 mg/dL (8.4-10.2); CARBON DIOXIDE 20 mmol/L (22-30); CHLORIDE 119 mmol/L (98-107); GLUCOSE 95 mg/dL (75-110); POTASSIUM 4.1 mmol/L (3.6-5.0)
[2020-02-29] MEDS: INSULIN LISPRO 100 UNIT/ML 3 ML VIAL SUBCUT SCH ×4 (09:37→22:42)
--- NOTE | 2020-02-29 09:51 | PDOC PROGRESS REPORT ---
Subjective Progress Note for:: 02/29/20 Subjective:: Patient is doing much better Alert awake No chest pain no short of breath Patient's kidney function is all stable improving We will currently hold the hydrochlorothiazide Culture urine is still not done Reason For Visit: ACUTE KIDNEY INJURY Physical Exam Vital Signs: Temp Pulse Resp BP Pulse Ox 98.0 F 64 16 150/81 H 97 02/29/20 07:46 02/29/20 07:46 02/29/20 07:46 02/29/20 07:46 02/29/20 07:46 Intake & Output 02/28/20 02/29/20 03/01/20 06:59 06:59 06:59 Intake Total 1560 1000 Balance 1560 1000 Weight 58.7 kg 58.6 kg General appearance: PRESENT: no acute distress, well-developed, well-nourished Head exam: PRESENT: atraumatic, normocephalic Eye exam: PRESENT: conjunctiva pink, EOMI, PERRLA. ABSENT: scleral icterus Ear exam: PRESENT: normal external ear exam Mouth exam: PRESENT: moist, tongue midline Neck exam: PRESENT: full ROM. ABSENT: carotid bruit, JVD, lymphadenopathy, thyromegaly Cardiovascular exam: PRESENT: RRR. ABSENT: diastolic murmur, rubs, systolic murmur Vascular exam: PRESENT: normal capillary refill GI/Abdominal exam: PRESENT: normal bowel sounds, soft. ABSENT: distended, g uarding, mass, organolmegaly, rebound, tenderness Rectal exam: PRESENT: deferred Neurological exam: PRESENT: alert, awake, oriented to person. ABSENT: motor sensory deficit Psychiatric exam: PRESENT: appropriate affect, normal mood. ABSENT: homicidal ideation, suicidal ideation Skin exam: PRESENT: dry, intact, warm. ABSENT: cyanosis, rash Results Laboratory Results: 02/29/20 05:35 02/29/20 05:35 02/29/20 02/29/20 05:35 05:35 WBC 5.6 RBC 2.70 L Hgb 9.0 L Hct 26.0 L MCV 96 MCH 33.2 MCHC 34.4 RDW 14.9 H Plt Count 136 L Sodium 144.8 Potassium 4.1 Chloride 119 H Carbon Dioxide 20 L Anion Gap 6 BUN 34 H Creatinine 1.36 H Est GFR ( Amer) 45 L Glucose 95 Calcium 8.1 L 02/27/20 02/27/20 02/27/20 15:45 15:45 22:00 Creatine Kinase 43 43 CK-MB (CK-2) 0.68 Troponin I < 0.012 02/27/20 02/28/20 02/28/20 22:00 04:10 04:10 Creatine Kinase 38 CK-MB (CK-2) 0.45 0.47 Troponin I < 0.012 < 0.012 Impressions: Chest X-Ray 02/27/20 09:57 IMPRESSION: Stable chronic interstitial changes without definitive evidence of acute cardiopulmonary process. Assessment & Plan - Diagnosis (1) Acute kidney injury Is this a current diagnosis for this admission?: Yes (2) Dehydration Is this a current diagnosis for this admission?: Yes (3) T2DM (type 2 diabetes mellitus) Qualifiers: Diabetes mellitus care home insulin use: with terminal gauger use Diabetes mellitus complication status: with neurologic complications Diabetes mellitus complication detail: with polyneuropathy Qualified Code(s): E11.42 - Type 2 diabetes mellitus with diabetic polyneuropathy; Z79.4 - predatory animal exterminator (current) use of insulin Is this a current diagnosis for this admission?: Yes (4) Breast cancer Qualifiers: Breast location: unspecified site of breast Estrogen receptor status: positive Patient sex: female Laterality: right Qualified Code(s): C50.911 - Malignant neoplasm of unspecified site of right female breast; Z17.0 - Estrogen receptor positive status [ER+] Is this a current diagnosis for this admission?: Yes - Time Time Spent with patient: 15-24 minutes Level of Care: IMCU Medications reviewed and adjusted accordingly: Yes Anticipated discharge: Home with Homehealth Anticipated DC Timeframe: within 48 hours - Plan Summary Plan Summary: We will reduce the IV fluids and discontinued tomorrow Encourage more p.o. intake
[2020-02-29] MEDS: LOSARTAN POTASSIUM 50 MG TABLET PO SCH (10:08)
[2020-02-29] MEDS: MULTIVITAMIN TABLET PO SCH (10:09)
[2020-02-29] MEDS: CARVEDILOL 12.5 MG TABLET PO SCH ×2 (10:09→21:08)
[2020-02-29] MEDS: LETROZOLE 2.5 MG TABLET PO SCH (10:10)
[2020-02-29] MEDS: ASPIRIN 81 MG TABLET, ENT COATED PO SCH (10:10)
[2020-02-29] MEDS: HYDROCHLOROTHIAZIDE 25 MG TABLET PO SCH (10:12)
[2020-02-29] MEDS: MEGESTROL ACETATE 20 MG TABLET PO SCH ×3 (10:12→22:00)
[2020-02-29] MEDS: INSULIN GLARGINE,HUM.REC.ANLOG 1,000 UNIT/10 ML VIAL SUBCUT SCH (10:13)
[2020-02-29] MEDS: SERTRALINE HCL 50 MG TABLET PO SCH (21:08)
[2020-02-29] MEDS: DOXEPIN HCL 25 MG CAPSULE PO SCH (21:19)
[2020-03-01 05:04] LABS: HEMATOCRIT 26.3 % (36.0-47.0); HEMOGLOBIN 9.1 g/dL (12.0-15.5); MEAN CORPUSCULAR HGB CONC 34.4 g/dL (32.0-36.0); MEAN CORPUSCULAR VOLUME 96 fl (80-97); PLATELET COUNT 118 10^3/uL (150-450); RED BLOOD COUNT 2.74 10^6/uL (3.72-5.28); RED CELL DISTRIBUTION WIDTH 14.3 % (11.5-14.0); WHITE BLOOD COUNT 6.3 10^3/uL (4.0-10.5)
[2020-03-01] MEDS: HEPARIN SOD (PORCINE) 5,000 UNIT/ML 1 ML VIAL SUBCUT SCH ×2 (05:39→14:50)
[2020-03-01] MEDS: GABAPENTIN 300 MG CAPSULE PO SCH ×2 (05:39→14:51)
[2020-03-01 05:42] LABS: ANION GAP 5 (5-19); BLOOD UREA NITROGEN 23 mg/dL (7-20); CALCIUM 8.2 mg/dL (8.4-10.2); CARBON DIOXIDE 20 mmol/L (22-30); CHLORIDE 120 mmol/L (98-107); GLUCOSE 109 mg/dL (75-110)
[2020-03-01] MEDS: INSULIN LISPRO 100 UNIT/ML 3 ML VIAL SUBCUT SCH ×2 (07:47→12:26)
[2020-03-01] MEDS: MULTIVITAMIN TABLET PO SCH (09:40)
[2020-03-01] MEDS: LOSARTAN POTASSIUM 50 MG TABLET PO SCH (09:40)
[2020-03-01] MEDS: CARVEDILOL 12.5 MG TABLET PO SCH (09:40)
[2020-03-01] MEDS: ASPIRIN 81 MG TABLET, ENT COATED PO SCH (09:41)
[2020-03-01] MEDS: LETROZOLE 2.5 MG TABLET PO SCH (09:41)
[2020-03-01] MEDS: MEGESTROL ACETATE 20 MG TABLET PO SCH (09:42)
[2020-03-01] MEDS: INSULIN GLARGINE,HUM.REC.ANLOG 1,000 UNIT/10 ML VIAL SUBCUT SCH (09:42)
[2020-03-01] MEDS: PANTOPRAZOLE SODIUM 20 MG TABLET.DR PO SCH (09:49)
[2020-03-01 17:32] VITALS: BP 176/64
--- NOTE | 2020-03-01 20:13 | PDOC DISCHARGE SUMMARY ---
Impression - Admit/DC Date/PCP Admission Date/Primary Care Provider: 02/29/20 13:49 VINCENT MALIK MD Discharge Date: 03/01/20 - Discharge Diagnosis (1) Acute kidney injury superimposed on chronic kidney disease Is this a current diagnosis for this admission?: Yes (2) Dehydration Is this a current diagnosis for this admission?: Yes (3) T2DM (type 2 diabetes mellitus) Is this a current diagnosis for this admission?: Yes - Additional Information Discharge Diet: As Tolerated, Diabetic Discharge Activity: Activity As Tolerated Referrals: VINCENT MALIK MD [Primary Care Provider] - Follow up as needed (Appointment request in follow-up book.) Prescriptions: Ondansetron HCl [Zofran 8 mg Tablet] 8 mg PO Q8HP PRN #30 tablet PRN Reason: Home Medications: Carvedilol [Coreg 25 mg Tablet] 25 mg PO Q12 05/02/19 Doxepin HCl [Sinequan 25 mg Capsule] 50 mg PO QHS 05/02/19 Ergocalciferol (Vitamin D2) [Drisdol 50,000 unit (1.25MG) Capsule] 50,000 unit PO SA@1000 05/02/19 Insulin Glargine,Hum.rec.anlog [Lantus Insulin 100 Unit/1 ml 10 ml] 25 unit SUBCUT DAILY 05/02/19 Losartan/Hydrochlorothiazide [Losartan-Hctz 100-25 mg Tab] 1 each PO DAILY 05/02/19 Aspirin [Ecotrin 81 mg EC Tablet] 81 mg PO DAILY 02/27/20 Letrozole 2.5 mg PO DAILY 02/27/20 Megestrol Acetate 40 mg PO BID 02/27/20 Multivitamin 1 each PO DAILY 02/27/20 Omeprazole 20 mg PO Q2D 02/27/20 Gabapentin [Neurontin 300 mg Capsule] 300 mg PO QHS #0 03/01/20 Ondansetron HCl [Zofran 8 mg Tablet] 8 mg PO Q8HP PRN #30 tablet 03/01/20 History of Present Illiness History of Present Illness: COLETTE TOMAS is a 84 year old female, She has a history of diabetes mellitus complicated with neuropathy nephropathy, CKD stage III with baseline creatinine 1.6 she was in the office 2 days ago for follow-up evaluation, she has lost weight due to poor intake, she said she has no appetite, she was prescribed Megace, appetite stimulant and blood was drawn for metabolic profile, the serum creatinine was 2.65 does suggest acute kidney injury it was felt this was due to dehydration from poor intake, the initial plan was to admit patient directly into the hospital for hydration to correct any prerenal component that could be contributing to kidney injury but no bed was available, she was advised to go to the emergency room, she was in the emergency room yesterday but she left before she was seen, she returned to the ER today for evaluation.She was seen by the ED physician and inpatient care was recommended by the ED physician. Hospital Course Hospital Course: Patient was admitted for the management of acute kidney injury, she has underlining multiple comorbidity including chronic kidney disease stage III, diabetes mellitus with nephropathy, she was treated with IV fluid to correct prerenal component that could be contributing to the acute kidney injury, on admission his serum creatinine was 2.37, today it is 1.30 patient felt much better, she was clinically dehydrated on admission, she is stable enough for discharge today Physical Exam Vital Signs: Temp Pulse Resp BP Pulse Ox 99.1 F 67 18 132/60 H 96 03/01/20 17:23 03/01/20 17:23 03/01/20 17:23 03/01/20 17:23 03/01/20 17:23 Intake & Output 02/29/20 03/01/20 03/02/20 06:59 06:59 06:59 Intake Total 1000 620 Balance 1000 620 Weight 58.6 kg 61.5 kg 61.5 kg General appearance: PRESENT: no acute distress Eye exam: PRESENT: PERRLA Respiratory exam: PRESENT: clear to auscultation theresa Cardiovascular exam: PRESENT: +S1, +S2 GI/Abdominal exam: PRESENT: soft Neurological exam: PRESENT: alert Results Laboratory Results: WBC 6.3 10^3/uL (4.0-10.5) 03/01/20 04:23 RBC 2.74 10^6/uL (3.72-5.28) L 03/01/20 04:23 Hgb 9.1 g/dL (12.0-15.5) L 03/01/20 04:23 Hct 26.3 % (36.0-47.0) L 03/01/20 04:23 MCV 96 fl (80-97) 03/01/20 04:23 MCH 33.0 pg (27.0-33.4) 03/01/20 04:23 MCHC 34.4 g/dL (32.0-36.0) 03/01/20 04:23 RDW 14.3 % (11.5-14.0) H 03/01/20 04:23 Plt Count 118 10^3/uL (150-450) L 03/01/20 04:23 Lymph % (Auto) 24.9 % (13-45) 02/27/20 08:18 Iron % (Auto) 5.8 % (3-13) 02/27/20 08:18 Eos % (Auto) 4.3 % (0-6) 02/27/20 08:18 Baso % (Auto) 0.6 % (0-2) 02/27/20 08:18 Absolute Neuts (auto) 4.7 10^3/uL (1.7-8.2) 02/27/20 08:18 Absolute Lymphs (auto) 1.8 10^3/uL (0.5-4.7) 02/27/20 08:18 Absolute Monos (auto) 0.4 10^3/uL (0.1-1.4) 02/27/20 08:18 Absolute Eos (auto) 0.3 10^3/uL (0.0-0.6) 02/27/20 08:18 Absolute Basos (auto) 0.0 10^3/uL (0.0-0.2) 02/27/20 08:18 Seg Neutrophils % 64.4 % (42-78) 02/27/20 08:18 Sodium 144.7 mmol/L (137-145) 03/01/20 04:23 Potassium 4.0 mmol/L (3.6-5.0) 03/01/20 04:23 Chloride 120 mmol/L (98-107) H 03/01/20 04:23 Carbon Dioxide 20 mmol/L (22-30) L 03/01/20 04:23 Anion Gap 5 (5-19) 03/01/20 04:23 BUN 23 mg/dL (7-20) H 03/01/20 04:23 Creatinine 1.30 mg/dL (0.52-1.25) H 03/01/20 04:23 Est GFR ( Amer) 47 (>60) L 03/01/20 04:23 Est GFR (MDRD) Non-Af 39 (>60) L 03/01/20 04:23 Glucose 109 mg/dL (75-110) 03/01/20 04:23 POC Glucose 92 mg/dL (70-110) 03/01/20 16:57 Calcium 8.2 mg/dL (8.4-10.2) L 03/01/20 04:23 Total Bilirubin 0.4 mg/dL (0.2-1.3) 02/28/20 04:10 Direct Bilirubin 0.3 mg/dL (0.0-0.4) 02/28/20 04:10 Neonat Total Bilirubin Not Reportable 02/28/20 04:10 Neonat Direct Bilirubin Not Reportable 02/28/20 04:10 Neonat Indirect Bili Not Reportable 02/28/20 04:10 AST 25 U/L (14-36) 02/28/20 04:10 ALT 14 U/L (<35) 02/28/20 04:10 Alkaline Phosphatase 78 U/L (38-126) 02/28/20 04:10 Creatine Kinase 38 U/L (30-135) 02/28/20 04:10 CK-MB (CK-2) 0.47 ng/mL (<4.55) 02/28/20 04:10 Troponin I < 0.012 ng/mL 02/28/20 04:10 Total Protein 5.8 g/dL (6.3-8.2) L 02/28/20 04:10 Albumin 3.0 g/dL (3.5-5.0) L 02/28/20 04:10 Urine Color YELLOW 02/27/20 10:20 Urine Appearance CLEAR 02/27/20 10:20 Urine pH 5.0 (5.0-9.0) 02/27/20 10:20 Ur Specific Shirley 1.013 02/27/20 10:20 Urine Protein NEGATIVE mg/dL (NEGATIVE) 02/27/20 10:20 Urine Glucose (UA) NEGATIVE mg/dL (NEGATIVE) 02/27/20 10:20 Urine Ketones NEGATIVE mg/dL (NEGATIVE) 02/27/20 10:20 Urine Blood NEGATIVE (NEGATIVE) 02/27/20 10:20 Urine Nitrite NEGATIVE (NEGATIVE) 02/27/20 10:20 Urine Bilirubin NEGATIVE (NEGATIVE) 02/27/20 10:20 Urine Urobilinogen NEGATIVE mg/dL (<2.0) 02/27/20 10:20 Ur Leukocyte Esterase TRACE (NEGATIVE) H 02/27/20 10:20 Urine WBC (Auto) 15 /HPF 02/27/20 10:20 Urine RBC (Auto) 2 /HPF 02/27/20 10:20 Squamous Epi Cells Auto <1 /HPF 02/27/20 10:20 Urine Mucus (Auto) RARE /LPF 02/27/20 10:20 Urine Ascorbic Acid NEGATIVE (NEGATIVE) 02/27/20 10:20 02/27/20 02/27/20 02/28/20 15:45 22:00 04:10 CK-MB (CK-2) 0.68 0.45 0.47 Troponin I < 0.012 < 0.012 < 0.012 Impressions: Chest X-Ray 02/27/20 09:57 IMPRESSION: Stable chronic interstitial changes without definitive evidence of acute cardiopulmonary process. Stroke Is this a Stroke Patient?: No Acute Heart Failure Is this a Heart Failure Patient?: No
== END 2020-03-01 18:00 | disposition home or self-care (01) | DRG 684 ==
LOC: ER 07:32 → EH 11:43 → INTOOBSV 11:43 → 3W 14:16 → OBSVTOIN 02-29 13:49
PROVIDERS: ADMIT Internal Medicine; ATTEND Internal Medicine
DX: N17.9 Acute kidney failure, unspecified (principal); E86.0 Dehydration; E11.22 Type 2 diabetes mellitus with diabetic chronic kidney disease; I12.9 Hypertensive chronic kidney disease with stage 1 through stage 4 chronic kidney disease, or unspecified chronic kidney disease; N18.30 Chronic kidney disease, stage 3 unspecified; E78.5 Hyperlipidemia, unspecified; E11.40 Type 2 diabetes mellitus with diabetic neuropathy, unspecified; E11.21 Type 2 diabetes mellitus with diabetic nephropathy; C50.911 Malignant neoplasm of unspecified site of right female breast; K21.9 Gastro-esophageal reflux disease without esophagitis; Z90.49 Acquired absence of other specified parts of digestive tract; Z90.10 Acquired absence of unspecified breast and nipple; Z96.641 Presence of right artificial hip joint; Z79.82 Long term (current) use of aspirin; Z79.4 Long term (current) use of insulin; Z79.899 Other long term (current) drug therapy; Z85.038 Personal history of other malignant neoplasm of large intestine; Z17.0 Estrogen receptor positive status [ER+]
CPT/HCPCS: 36415; 71045; 80048; 80053; 81001; 82550; 82553; 82962; 83735; 84484; 85025; 85027; 93005; 93010; 96360; 99281; 99285; G0378; J1644; J1815; J3490; J7030; J7040